=== PATIENT | male | born 1945 | race African-American/Black ===

== ENCOUNTER → 2016-03-27 | Outpatient (CLI) | payer MEDICARE, BC | END | disposition home or self-care (01) | LOC: LABWHC1 08:15 | PROVIDERS: ATTEND Urology | DX: R97.20 Elevated prostate specific antigen [PSA] (principal) | CPT/HCPCS: 36415; 84153 ==

== ENCOUNTER → 2016-08-18 | Outpatient (CLI) | payer MEDICARE, BC ==
[2016-08-18 09:23] LABS: Basophils # (A) 0.1 k/uL (0-0.2); Basophils % (A) 1 %; CH 26.3; Eosinophils # (A) 0.3 k/uL (0-0.7); Eosinophils % (A) 4 %; HCT 41.4 % (39.0-53.0); HDW 2.63; HGB 13.6 gm/dL (13.0-17.5); Luc # (Auto) 0.24; Luc % (Auto) 3; Lymphocytes # (A) 1.5 k/uL (1.0-4.8); Lymphocytes % (A) 20 %; MCH 26.4 pg (25.0-35.0); MCHC 32.8 g/dL (31.0-37.0); MCV 80.4 fL (80.0-100.0); Mean Platelet Volume 6.8; Monocytes # (A) 0.4 k/uL (0-1.0); Monocytes % (A) 5 %; Neutrophils # (A) 5.1 k/uL (1.3-7.7); Neutrophils % (A) 67 %; RBC 5.15 m/uL (4.30-5.90); RDW 14.1 % (11.5-15.5); WBC 7.6 k/uL (3.8-10.6)
[2016-08-18 10:39] LABS: Erythrocyte Sedimentation Rate 8 mm/hr (0-15)
[2016-08-18 12:16] LABS: ALT 42 U/L (21-72); AST 26 U/L (17-59); Alkaline Phosphatase 92 U/L (38-126); Anion Gap 9 mmol/L; Blood Urea Nitrogen 17 mg/dL (9-20); C Reactive Protein <5.0 mg/L (<10.0); Calcium 9.5 mg/dL (8.4-10.2); Carbon Dioxide 27 mmol/L (22-30); Chloride 108 mmol/L (98-107); Cholesterol 195 mg/dL (<200); Creatine Kinase 173 U/L (55-170); Glucose 99 mg/dL (74-99); HDL Cholesterol 39 mg/dL (40-60); Iron 70 ug/dL (49-181); Non-African American GFR(MDRD) 55 (>60 ml/min/1.73 sqM); Potassium 4.3 mmol/L (3.5-5.1); Sodium 144 mmol/L (137-145); Total Bilirubin 0.5 mg/dL (0.2-1.3); Total Protein 7.5 g/dL (6.3-8.2); Triglycerides 105 mg/dL (<150)
[2016-08-18 12:30] LABS: % Iron Saturation 23.2 % (20-50); Total Iron Binding Capacity 302 ug/dL (261-462)
== END | disposition home or self-care (01) ==
LOC: LABWHC1 08:23
PROVIDERS: ATTEND Internal Medicine
DX: Z00.00 Encounter for general adult medical examination without abnormal findings (principal); L03.90 Cellulitis, unspecified; D64.9 Anemia, unspecified; N40.0 Benign prostatic hyperplasia without lower urinary tract symptoms; E78.5 Hyperlipidemia, unspecified; M81.0 Age-related osteoporosis without current pathological fracture; E55.9 Vitamin D deficiency, unspecified
CPT/HCPCS: 36415; 80053; 80061; 82306; 82550; 82728; 83540; 83550; 85025; 85652; 86140

== ENCOUNTER → 2017-06-02 | Outpatient (CLI) | payer MEDICARE ==
[2017-06-02 11:46] LABS: Basophils # (A) 0.1 k/uL (0-0.2); Basophils % (A) 1 %; Eosinophils # (A) 0.2 k/uL (0-0.7); Eosinophils % (A) 3 %; HCT 40.9 % (39.0-53.0); HGB 13.3 gm/dL (13.0-17.5); Lymphocytes # (A) 1.8 k/uL (1.0-4.8); Lymphocytes % (A) 21 %; MCH 26.3 pg (25.0-35.0); MCHC 32.5 g/dL (31.0-37.0); Mean Platelet Volume 7.2; Monocytes # (A) 0.5 k/uL (0-1.0); Monocytes % (A) 6 %; Neutrophils # (A) 5.8 k/uL (1.3-7.7); Neutrophils % (A) 68 %; Platelet Count 180 k/uL (150-450); RBC 5.05 m/uL (4.30-5.90); RDW 14.2 % (11.5-15.5); WBC 8.5 k/uL (3.8-10.6)
--- NOTE | 2017-06-02 16:34 | XR ---
Sinus HISTORY: Acute sinusitis 4 views of the sinuses Correlation to prior exam 05/02/2011 Frontal view appears rotated. No evident lytic or blastic lesion. No air-fluid level to suggest acute sinusitis is evident. Orbits are intact. Bone mineralization is maintained. Degenerative disc change s noted incidentally in the cervical spine. Mastoid air cells appear well aerated. IMPRESSION: Correlate for point tenderness to assess for sinusitis, sinus CT may be of benefit.
== END | disposition home or self-care (01) ==
LOC: LABWHC1 10:45
PROVIDERS: ATTEND Internal Medicine
DX: J01.90 Acute sinusitis, unspecified (principal)
CPT/HCPCS: 36415; 70220; 85025

== ENCOUNTER → 2017-09-30 | Outpatient (CLI) | payer MEDICARE ==
[2017-09-30 08:51] LABS: Basophils # (A) 0.1 k/uL (0-0.2); Basophils % (A) 1 %; Eosinophils # (A) 0.4 k/uL (0-0.7); Eosinophils % (A) 4 %; HCT 41.6 % (39.0-53.0); HGB 13.7 gm/dL (13.0-17.5); Lymphocytes # (A) 1.6 k/uL (1.0-4.8); Lymphocytes % (A) 17 %; MCH 27.1 pg (25.0-35.0); MCV 82.1 fL (80.0-100.0); Mean Platelet Volume 6.8; Monocytes # (A) 0.6 k/uL (0-1.0); Monocytes % (A) 6 %; Neutrophils # (A) 6.6 k/uL (1.3-7.7); Neutrophils % (A) 71 %; Platelet Count 202 k/uL (150-450); RBC 5.07 m/uL (4.30-5.90); RDW 15.1 % (11.5-15.5); WBC 9.4 k/uL (3.8-10.6)
[2017-09-30 10:04] LABS: Erythrocyte Sedimentation Rate 8 mm/hr (0-15)
[2017-09-30 10:05] LABS: ALT 38 U/L (21-72); AST 28 U/L (17-59); Alkaline Phosphatase 67 U/L (38-126); Anion Gap 8 mmol/L; Blood Urea Nitrogen 15 mg/dL (9-20); C Reactive Protein <5.0 mg/L (<10.0); Calcium 9.4 mg/dL (8.4-10.2); Carbon Dioxide 26 mmol/L (22-30); Chloride 108 mmol/L (98-107); Cholesterol 201 mg/dL (<200); Creatine Kinase 125 U/L (55-170); Glucose 95 mg/dL (74-99); HDL Cholesterol 45 mg/dL (40-60); LDL Cholesterol,Calculated 136 mg/dL (0-99); Potassium 4.4 mmol/L (3.5-5.1); Sodium 142 mmol/L (137-145); Total Bilirubin 0.7 mg/dL (0.2-1.3); Total Protein 6.8 g/dL (6.3-8.2); Triglycerides 101 mg/dL (<150)
== END | disposition home or self-care (01) ==
LOC: LABWHC1 07:46
PROVIDERS: ATTEND Internal Medicine
DX: D64.9 Anemia, unspecified (principal); N40.0 Benign prostatic hyperplasia without lower urinary tract symptoms; E87.8 Other disorders of electrolyte and fluid balance, not elsewhere classified; E78.5 Hyperlipidemia, unspecified; M81.0 Age-related osteoporosis without current pathological fracture; E55.9 Vitamin D deficiency, unspecified; K51.90 Ulcerative colitis, unspecified, without complications
CPT/HCPCS: 36415; 80053; 80061; 82306; 82550; 84153; 84443; 85025; 85652; 86140

== ENCOUNTER → 2018-02-05 | Outpatient (CLI) | payer MEDICARE ==
[2018-02-05 15:31] LABS: LDL Cholesterol,Calculated 139.6 mg/dL (0.0-131.0); VLDL Calculation 21.4 mg/dL (5.00-40.00)
== END ==
LOC: LABWHC1 07:56
PROVIDERS: ATTEND Internal Medicine
DX: E78.5 Hyperlipidemia, unspecified (principal)
CPT/HCPCS: 36415; 80061; 82550

== ENCOUNTER → 2018-05-12 | Outpatient (CLI) | payer MEDICARE ==
[2018-05-12 16:39] LABS: ALT 31 U/L (10-49); AST 23 U/L (14-35); Albumin/Globulin Ratio 1.91 (1.60-3.17); Alkaline Phosphatase 89 U/L (41-126); C Reactive Protein <0.4 mg/dL (0.0-0.8); Cholesterol 144 mg/dL (0-200); Creatine Kinase 145 U/L (35-257); Globulin 2.3 g/dL (1.6-3.3); LDL Cholesterol,Calculated 77.6 mg/dL (0.0-131.0); Total Bilirubin 0.6 mg/dL (0.3-1.2); Total Protein 6.7 g/dL (6.2-8.2)
== END | disposition home or self-care (01) ==
LOC: LABWHC1 08:35
PROVIDERS: ATTEND Internal Medicine
DX: E78.5 Hyperlipidemia, unspecified (principal); K52.9 Noninfective gastroenteritis and colitis, unspecified
CPT/HCPCS: 36415; 80061; 80076; 82550; 85652; 86140

== ENCOUNTER → 2018-10-06 | Outpatient (CLI) | payer MEDICARE ==
[2018-10-06 07:49] LABS: Basophils # (A) 0.1 k/uL (0-0.2); Basophils % (A) 1 %; Eosinophils # (A) 0.4 k/uL (0-0.7); Eosinophils % (A) 4 %; HCT 42.1 % (39.0-53.0); HGB 13.4 gm/dL (13.0-17.5); Lymphocytes # (A) 1.7 k/uL (1.0-4.8); Lymphocytes % (A) 19 %; MCH 25.8 pg (25.0-35.0); MCHC 31.8 g/dL (31.0-37.0); MCV 81.3 fL (80.0-100.0); Mean Platelet Volume 7.5; Monocytes # (A) 0.5 k/uL (0-1.0); Monocytes % (A) 6 %; Neutrophils # (A) 6.1 k/uL (1.3-7.7); Neutrophils % (A) 68 %; Platelet Count 193 k/uL (150-450); RBC 5.18 m/uL (4.30-5.90); RDW 14.4 % (11.5-15.5)
[2018-10-06 10:01] LABS: Erythrocyte Sedimentation Rate 4 mm/hr (0-15)
[2018-10-06 12:16] LABS: ALT 37 U/L (10-49); AST 27 U/L (14-35); African American GFR (CKD) 58.6 (60.0-200.0); Albumin/Globulin Ratio 2.15 (1.60-3.17); Alkaline Phosphatase 90 U/L (41-126); BUN/Creat Ratio 12.14 Ratio (12.00-20.00); C Reactive Protein <0.4 mg/dL (0.0-0.8); Calcium 9.3 mg/dL (8.7-10.3); Carbon Dioxide 23.7 mmol/L (21.6-31.8); Chloride 109 mmol/L (96-109); Cholesterol 151 mg/dL (0-200); Creatine Kinase 245 U/L (35-257); Glucose 113 mg/dL (70-110); Potassium 3.7 mmol/L (3.5-5.5); Sodium 143 mmol/L (135-145); Total Bilirubin 0.9 mg/dL (0.3-1.2); Total Protein 6.3 g/dL (6.2-8.2)
== END | disposition home or self-care (01) ==
LOC: LABWHC1 07:17
PROVIDERS: ATTEND Internal Medicine
DX: E78.5 Hyperlipidemia, unspecified (principal); I10 Essential (primary) hypertension; E03.9 Hypothyroidism, unspecified; N40.0 Benign prostatic hyperplasia without lower urinary tract symptoms; E55.9 Vitamin D deficiency, unspecified; K51.90 Ulcerative colitis, unspecified, without complications
CPT/HCPCS: 36415; 80053; 80061; 82306; 82550; 84153; 85025; 85652; 86140

== ENCOUNTER → 2019-05-17 | Outpatient (CLI) | payer MEDICARE ==
--- NOTE | 2019-05-17 11:02 | XR ---
EXAMINATION TYPE: XR chest 2V DATE OF EXAM: 05/17/2019 COMPARISON: NONE TECHNIQUE: PA and lateral views submitted. HISTORY: Cough FINDINGS: The lungs are clear and there is no pneumothorax, pleural effusion, or focal pneumonia. Arthropathy of the shoulders. Biapical pleural thickening. No overt failure. IMPRESSION: 1. No acute process.
[2019-05-17 11:06] LABS: Basophils # (A) 0.1 k/uL (0-0.2); Basophils % (A) 1 %; Eosinophils % (A) 0 %; HCT 40.1 % (39.0-53.0); HGB 12.6 gm/dL (13.0-17.5); Lymphocytes # (A) 1.3 k/uL (1.0-4.8); Lymphocytes % (A) 11 %; MCH 26.5 pg (25.0-35.0); MCHC 31.3 g/dL (31.0-37.0); MCV 84.5 fL (80.0-100.0); Mean Platelet Volume 8.3; Monocytes # (A) 0.5 k/uL (0-1.0); Monocytes % (A) 4 %; Neutrophils # (A) 9.5 k/uL (1.3-7.7); Neutrophils % (A) 82 %; Platelet Count 257 k/uL (150-450); RBC 4.74 m/uL (4.30-5.90); RDW 13.9 % (11.5-15.5); WBC 11.5 k/uL (3.8-10.6)
== END | disposition home or self-care (01) ==
LOC: PROCWHC3 10:25
PROVIDERS: ATTEND Internal Medicine
DX: J06.9 Acute upper respiratory infection, unspecified (principal); J40 Bronchitis, not specified as acute or chronic; J12.9 Viral pneumonia, unspecified
CPT/HCPCS: 71046; 85025; 87502

== ENCOUNTER → 2019-05-31 | Outpatient (CLI) | payer MEDICARE ==
[2019-05-31 09:05] LABS: Appearance,Urine Clear (Clear); Bacteria,Urine Rare /hpf; Bilirubin,Urine Negative (Negative); Blood,Urine Small (Negative); Color,Urine Yellow; Glucose,Urine (UA) Negative (Negative); Ketones,Urine Negative (Negative); Leukocyte Esterase,Urine Trace (Negative); Mucus,Urine Rare /hpf; Nitrite,Urine Negative (Negative); Protein,Urine Negative (Negative); RBC,Urine 49 /hpf (0-5); Specific Gravity,Urine 1.014 (1.001-1.035); Squamous Epithelial Cell,Urine <1 /hpf (0-4); Urobilinogen,Urine <2.0 mg/dL (<2.0); WBC,Urine 5 /hpf (0-5)
== END | disposition home or self-care (01) ==
LOC: LABWHC1 08:23
PROVIDERS: ATTEND Internal Medicine
DX: R31.9 Hematuria, unspecified (principal)
CPT/HCPCS: 36415; 81001; 84550; 87086; 88108

== ENCOUNTER → 2019-07-20 | Outpatient (CLI) | payer MEDICARE ==
--- NOTE | 2019-07-20 10:40 | US ---
EXAMINATION TYPE: US kidneys/renal and bladder DATE OF EXAM: 07/20/2019 COMPARISON: NONE CLINICAL HISTORY: R31.1 Benign essential microscopic hematuria. EXAM MEASUREMENTS: Right Kidney: 11.7 x 6.0 x 6.3 cm Left Kidney: 10.8 x 4.6 x 5.2 cm Right Kidney: No hydronephrosis. Two cystic areas visualized, largest measuring 4.9 x 4.7 x 3.8 cm Left Kidney: No hydronephrosis or masses seen Bladder: Mobile, Shadowing, echogenic foci visualized measuring 2.0 x 2.6 x 1.7 cm Bilateral Jets seen: No There is no evidence for hydronephrosis at this point in time. No nephrolithiasis is seen. 2 simple appearing thin-walled cysts throughout right kidney identified up to 4.9 cm long axis. IMPRESSION: Shadowing irregular Intraluminal bladder calculi up to 2.6 cm in size.
== END | disposition home or self-care (01) ==
LOC: RADUSWWP 09:32
PROVIDERS: ATTEND Urology
DX: N21.0 Calculus in bladder (principal)
CPT/HCPCS: 76770

== ENCOUNTER → 2019-08-18 | Outpatient (CLI) | payer MEDICARE ==
[2019-08-18 11:31] LABS: Basophils # (A) 0.1 k/uL (0-0.2); Basophils % (A) 1 %; Eosinophils # (A) 0.1 k/uL (0-0.7); Eosinophils % (A) 1 %; HCT 43.3 % (39.0-53.0); HGB 13.4 gm/dL (13.0-17.5); Hypochromasia Slight; Lymphocytes % (A) 12 %; MCH 26.9 pg (25.0-35.0); MCHC 30.8 g/dL (31.0-37.0); MCV 87.3 fL (80.0-100.0); Mean Platelet Volume 7.7; Monocytes # (A) 0.2 k/uL (0-1.0); Monocytes % (A) 3 %; Neutrophils # (A) 6.8 k/uL (1.3-7.7); Neutrophils % (A) 83 %; Platelet Count 186 k/uL (150-450); RBC 4.96 m/uL (4.30-5.90); RDW 14.1 % (11.5-15.5); WBC 8.3 k/uL (3.8-10.6)
[2019-08-18 18:10] LABS: African American GFR (CKD) 63.6 (60.0-200.0); Anion Gap 8.2 mmol/L (4.00-12.00); BUN/Creat Ratio 15.38 Ratio (12.00-20.00); Calcium 9.5 mg/dL (8.7-10.3); Carbon Dioxide 24.8 mmol/L (21.6-31.8); Non-African American GFR(CKD) 54.9 (60.0-200.0); Potassium 4.4 mmol/L (3.5-5.5)
== END | disposition home or self-care (01) ==
LOC: LABWHC1 09:15
PROVIDERS: ATTEND Urology
DX: N21.0 Calculus in bladder (principal)
CPT/HCPCS: 36415; 80048; 85025

== ENCOUNTER → 2019-09-28 | Outpatient (CLI) | payer MEDICARE ==
--- NOTE | 2019-09-28 12:45 | XR ---
EXAMINATION TYPE: XR wrist complete LT DATE OF EXAM: 09/28/2019 CLINICAL HISTORY: Left wrist edema and anterior and medial pain. No known injury. TECHNIQUE: Frontal, lateral and oblique images of the left wrist are obtained. COMPARISON: None FINDINGS: There is no acute fracture/dislocation evident in the left wrist. There is narrowing and degenerative change of the distal radial ulnar joint. Minimal narrowing of the radiocarpal joint. The re are diffuse subchondral cystic changes of the intercarpal and the first metacarpal phalangeal join t. There is widening of the scapholunate interval up to 3.3 mm consistent with SLAC wrist. There is s oft tissue swelling about the wrist, most notably on the palmar side. IMPRESSION: 1. No acute fracture or dislocation. 2. Scapholunate advanced collapse (SLAC) wrist, wrist soft tissue swelling, and degenerative changes in distribution as above. 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
[2019-09-28 13:38] LABS: Basophils # (A) 0.1 k/uL (0-0.2); Basophils % (A) 0 %; Eosinophils # (A) 0.1 k/uL (0-0.7); Eosinophils % (A) 1 %; HCT 42.1 % (39.0-53.0); HGB 13.2 gm/dL (13.0-17.5); Lymphocytes # (A) 1.3 k/uL (1.0-4.8); Lymphocytes % (A) 12 %; MCH 26.3 pg (25.0-35.0); MCHC 31.3 g/dL (31.0-37.0); MCV 84.1 fL (80.0-100.0); Mean Platelet Volume 8.4; Monocytes # (A) 0.9 k/uL (0-1.0); Monocytes % (A) 8 %; Neutrophils # (A) 8.8 k/uL (1.3-7.7); Neutrophils % (A) 77 %; Platelet Count 154 k/uL (150-450); RBC 5.01 m/uL (4.30-5.90); RDW 13.1 % (11.5-15.5); WBC 11.4 k/uL (3.8-10.6)
[2019-09-28 19:56] LABS: African American GFR (CKD) 63.6 (60.0-200.0); Anion Gap 7.5 mmol/L (4.00-12.00); BUN/Creat Ratio 13.85 Ratio (12.00-20.00); Calcium 9.4 mg/dL (8.7-10.3); Carbon Dioxide 28.5 mmol/L (21.6-31.8); Non-African American GFR(CKD) 54.9 (60.0-200.0); Potassium 4.5 mmol/L (3.5-5.5)
[2019-09-28 19:57] LABS: C Reactive Protein 4.4 mg/dL (0.0-0.8); Uric Acid 6.7 mg/dL (3.7-8.7)
[2019-09-28 22:11] LABS: Anti-DNA, DS unit <1.0 IU/mL; DNA Double-Stranded NEGATIVE (NEGATIVE)
[2019-09-28 22:17] LABS: Cyclic Citrull Pep IgG Unit <0.5 U/mL; Cyclic Citrullinated Pep IgG NEGATIVE (NEGATIVE)
[2019-09-29 00:02] LABS: Erythrocyte Sedimentation Rate 12 mm/Hr (0-20)
== END | disposition home or self-care (01) ==
LOC: LABWHC1 11:41
PROVIDERS: ATTEND Internal Medicine
DX: D64.9 Anemia, unspecified (principal); M10.9 Gout, unspecified; M06.9 Rheumatoid arthritis, unspecified; K57.90 Diverticulosis of intestine, part unspecified, without perforation or abscess without bleeding; Z87.39 Personal history of other diseases of the musculoskeletal system and connective tissue; M25.632 Stiffness of left wrist, not elsewhere classified; M79.89 Other specified soft tissue disorders; M12.9 Arthropathy, unspecified
CPT/HCPCS: 36415; 80048; 84550; 85025; 85652; 86038; 86140; 86200; 86225; 86431

== ENCOUNTER → 2019-10-19 | Outpatient (CLI) | payer MEDICARE ==
[2019-10-19 07:42] LABS: Basophils # (A) 0.1 k/uL (0-0.2); Basophils % (A) 1 %; Eosinophils # (A) 0.3 k/uL (0-0.7); Eosinophils % (A) 3 %; HCT 41.6 % (39.0-53.0); HGB 12.8 gm/dL (13.0-17.5); Lymphocytes # (A) 2.2 k/uL (1.0-4.8); Lymphocytes % (A) 22 %; MCH 25.9 pg (25.0-35.0); MCHC 30.8 g/dL (31.0-37.0); Mean Platelet Volume 8.2; Monocytes # (A) 0.5 k/uL (0-1.0); Monocytes % (A) 5 %; Neutrophils # (A) 6.4 k/uL (1.3-7.7); Neutrophils % (A) 66 %; Platelet Count 167 k/uL (150-450); RBC 4.95 m/uL (4.30-5.90); RDW 13.2 % (11.5-15.5); WBC 9.7 k/uL (3.8-10.6)
[2019-10-19 07:46] LABS: Appearance,Urine Clear (Clear); Bilirubin,Urine Negative (Negative); Blood,Urine Negative (Negative); Color,Urine Yellow; Glucose,Urine (UA) Negative (Negative); Ketones,Urine Negative (Negative); Leukocyte Esterase,Urine Negative (Negative); Nitrite,Urine Negative (Negative); PH, Urine 5.5 (5.0-8.0); Protein,Urine Negative (Negative); Urobilinogen,Urine <2.0 mg/dL (<2.0)
[2019-10-19 12:33] LABS: African American GFR (CKD) 58.2 (60.0-200.0); Albumin 4.2 g/dL (3.80-4.90); Anion Gap 6.8 mmol/L (4.00-12.00); BUN/Creat Ratio 11.43 Ratio (12.00-20.00); Calcium 9.3 mg/dL (8.7-10.3); Carbon Dioxide 28.2 mmol/L (21.6-31.8); Chol/HDL Ratio 2.84; Globulin 2.1 g/dL (1.6-3.3); Magnesium 1.7 mg/dL (1.5-2.4); Non-African American GFR(CKD) 50.2 (60.0-200.0); Phosphorus 3.5 mg/dL (2.4-5.1); Potassium 3.6 mmol/L (3.5-5.5); Total Bilirubin 0.6 mg/dL (0.3-1.2); Total Protein 6.3 g/dL (6.2-8.2); Uric Acid 7.7 mg/dL (3.7-8.7)
[2019-10-19 12:42] LABS: Prostate Specific Antigen 4.4 ng/mL (0.0-6.5)
[2019-10-19 19:02] LABS: Erythrocyte Sedimentation Rate 7 mm/Hr (0-20)
== END | disposition home or self-care (01) ==
LOC: LABWHC1 07:06
PROVIDERS: ATTEND Internal Medicine
DX: M10.9 Gout, unspecified (principal); R31.9 Hematuria, unspecified; D63.1 Anemia in chronic kidney disease; N18.3 Chronic kidney disease, stage 3 (moderate); E78.5 Hyperlipidemia, unspecified; K52.9 Noninfective gastroenteritis and colitis, unspecified; N40.0 Benign prostatic hyperplasia without lower urinary tract symptoms
CPT/HCPCS: 36415; 80053; 80061; 81003; 82306; 83735; 83970; 84100; 84153; 84550; 85025; 85652

== ENCOUNTER → 2019-11-02 | Outpatient (CLI) | payer MEDICARE, OTHER ==
--- NOTE | 2019-11-02 14:00 | ECHOF ---
Referral Reason:I95.9 Hypotension MEASUREMENTS -------- HEIGHT: 182.9 cm WEIGHT: 96.2 kg BP: RVIDd: 3.0 cm (< 3.3) IVSd: 1.2 cm (0.6 - 1.1) LVIDd: 4.6 cm (3.9 - 5.3) LVPWd: 0.9 cm (0.6 - 1.1) IVSs: 1.5 cm LVIDs: 3.3 cm LVPWs: 1.3 cm LA Diam: 4.0 cm (2.7 - 3.8) LAESV Index (A-L): 27.60 ml/m Ao Diam: 4.3 cm (2.0 - 3.7) AV Cusp: 2.0 cm (1.5 - 2.6) MV EXCURSION: 22.560 mm (> 18.000) MV EF SLOPE: 74 mm/s (70 - 150) EPSS: 0.5 cm MV E Gianfranco: 0.33 m/s MV DecT: 287 ms MV A Gianfranco: 0.70 m/s MV E/A Ratio: 0.47 RAP: 5.00 mmHg RVSP: 12.83 mmHg FINDINGS -------- Sinus rhythm. This was a technically good study. The left ventricular size is normal. Overall left ventricular systolic function is mildly impaired with, an EF between 45 - 50 %. The right ventricle is normal in size. The left atrial size is normal. Normal LA size by volume 22+/-6 ml/m2. The right atrial size is normal. There is mild aortic regurgitation. Mild mitral regurgitation is present. Mild tricuspid regurgitation present. Right ventricular systolic pressure is normal at < 35 mmHg. There is no pulmonic regurgitation present. The aortic root size is normal. There is no pericardial effusion. CONCLUSIONS -------- 1. The left ventricular size is normal. 2. Overall left ventricular systolic function is mildly impaired with, an EF between 45 - 50 %. 3. The right ventricle is normal in size. 4. The right atrial size is normal. 5. There is mild aortic regurgitation. 6. Mild mitral regurgitation is present. 7. Mild tricuspid regurgitation present. SOCK LINING STITCHER: Elena Tinajero RDCS
== END | disposition home or self-care (01) ==
LOC: RADECHMAIN 11:12
PROVIDERS: ATTEND Internal Medicine
DX: I08.3 Combined rheumatic disorders of mitral, aortic and tricuspid valves (principal); I25.10 Atherosclerotic heart disease of native coronary artery without angina pectoris
CPT/HCPCS: 93306

== ENCOUNTER → 2020-02-01 | Outpatient (CLI) | payer MEDICARE ==
[2020-02-01 19:43] LABS: T4, Free (Free Thyroxine) 0.8 ng/dL (0.80-1.80)
== END | disposition home or self-care (01) ==
LOC: LABWHC1 14:12
PROVIDERS: ATTEND Nurse Practitioner Adult Health
DX: E03.9 Hypothyroidism, unspecified (principal)
CPT/HCPCS: 36415; 84439; 84443; 84481

== ENCOUNTER → 2020-10-30 | Outpatient (CLI) | payer MEDICARE, OTHER ==
[2020-10-30 08:10] LABS: Creatinine,Urine Random 112.9 mg/dL; Protein/Creatinine Ratio,Urine 0.071
[2020-10-30 11:31] LABS: Basophils # (A) 0.07 X 10*3/uL (0.00-0.10); Basophils % (A) 0.7 %; Eosinophils # (A) 0.44 X 10*3/uL (0.04-0.35); Eosinophils % (A) 4.1 %; HCT 43.1 % (39.6-50.0); HGB 13.9 g/dL (13.0-17.0); Lymphocytes # (A) 2.75 X 10*3/uL (0.90-5.00); Lymphocytes % (A) 25.6 %; MCH 26.8 pg (27.0-32.0); MCHC 32.3 g/dL (32.0-37.0); Mean Platelet Volume 11.7 fL (9.5-12.2); Monocytes # (A) 0.95 X 10*3/uL (0.20-1.00); Monocytes % (A) 8.8 %; Neutrophils # (A) 6.47 X 10*3/uL (1.80-7.70); Neutrophils % (A) 60.2 %; Platelet Count 195 X 10*3/uL (140-440); RBC 5.19 X 10*6/uL (4.40-5.60); RDW 14.6 % (11.5-14.5); WBC 10.74 X 10*3/uL (4.50-10.00)
[2020-10-30 15:15] LABS: African American GFR (CKD) 69.6 (60.0-200.0); Albumin 4.4 g/dL (3.80-4.90); Albumin/Globulin Ratio 1.76 (1.60-3.17); Anion Gap 6.6 mmol/L (4.00-12.00); BUN/Creat Ratio 16.67 Ratio (12.00-20.00); Calcium 9.2 mg/dL (8.7-10.3); Carbon Dioxide 27.4 mmol/L (21.6-31.8); Chol/HDL Ratio 2.96; Globulin 2.5 g/dL (1.6-3.3); LDL Cholesterol,Calculated 83.8 mg/dL (0.0-131.0); Non-African American GFR(CKD) 60.1 (60.0-200.0); Potassium 4.2 mmol/L (3.5-5.5); Total Bilirubin 0.7 mg/dL (0.2-1.2); Total Protein 6.9 g/dL (6.2-8.2); Uric Acid 7.2 mg/dL (3.7-8.7); VLDL Calculation 18.2 mg/dL (5.00-40.00)
[2020-10-30 15:24] LABS: Prostate Specific Antigen 4.9 ng/mL (0.0-6.5)
[2020-10-30 20:28] LABS: Erythrocyte Sedimentation Rate 5 mm/Hr (0-20)
== END | disposition home or self-care (01) ==
LOC: LABWHC1 07:00
PROVIDERS: ATTEND Internal Medicine
DX: D64.9 Anemia, unspecified (principal); N40.0 Benign prostatic hyperplasia without lower urinary tract symptoms; E78.5 Hyperlipidemia, unspecified; N20.0 Calculus of kidney; R80.9 Proteinuria, unspecified; E55.9 Vitamin D deficiency, unspecified; I12.9 Hypertensive chronic kidney disease with stage 1 through stage 4 chronic kidney disease, or unspecified chronic kidney disease; N18.30 Chronic kidney disease, stage 3 unspecified
CPT/HCPCS: 36415; 80053; 80061; 82306; 82570; 84153; 84156; 84550; 85025; 85652

== ENCOUNTER → 2021-10-25 | Outpatient (CLI) | payer MEDICARE, OTHER ==
[2021-10-25 11:26] LABS: % Iron Saturation 16.53 (15.00-50.00); ALT 32 U/L (10-49); AST 26 U/L (14-35); African American GFR (CKD) 69.1 (60.0-200.0); Albumin 4.3 g/dL (3.8-4.9); Albumin/Globulin Ratio 1.95 (1.60-3.17); Alkaline Phosphatase 86 U/L (41-126); BUN/Creat Ratio 10.92 Ratio (12.00-20.00); Blood Urea Nitrogen 13.1 mg/dL (9.0-27.0); Carbon Dioxide 26.8 mmol/L (20.0-27.5); Chloride 107 mmol/L (96-109); Globulin 2.2 g/dL (1.6-3.3); Glucose 96 mg/dL (70-110); Iron 48 ug/dL (65-175); Magnesium 1.9 mg/dL (1.5-2.4); Non-African American GFR(CKD) 59.6 (60.0-200.0); Phosphorus 3.4 mg/dL (2.4-5.1); Potassium 3.8 mmol/L (3.5-5.5); Sodium 144 mmol/L (135-145); Total Iron Binding Capacity 290 ug/dL (228-460); Total Protein 6.5 g/dL (6.2-8.2); Uric Acid 6.1 mg/dL (3.7-8.7)
[2021-10-25 11:55] LABS: Basophils # (A) 0.06 X 10*3/uL (0.00-0.10); Basophils % (A) 0.7 %; Eosinophils # (A) 0.43 X 10*3/uL (0.04-0.35); Eosinophils % (A) 4.8 %; HCT 40.5 % (39.6-50.0); Immature Grans, Automated 0.8 %; Lymphocytes # (A) 2.19 X 10*3/uL (0.90-5.00); Lymphocytes % (A) 24.2 %; MCH 26.2 pg (27.0-32.0); MCHC 32.1 g/dL (32.0-37.0); MCV 81.7 fL (80.0-97.0); Monocytes # (A) 0.86 X 10*3/uL (0.20-1.00); Monocytes % (A) 9.5 %; NRBC Per 100 WBC 0 /100 WBCS (0.0-0.0); Neutrophils # (A) 5.44 X 10*3/uL (1.80-7.70); Platelet Count 171 X 10*3/uL (140-440); RBC 4.96 X 10*6/uL (4.40-5.60); RDW 14.7 % (11.5-14.5); WBC 9.05 X 10*3/uL (4.50-10.00)
[2021-10-25 12:31] LABS: C Reactive Protein <0.30 mg/dL (0.00-0.80); Chol/HDL Ratio 2.41 Ratio; Creatine Kinase 179 U/L (35-257); LDL Cholesterol,Calculated 68.5 mg/dL (0.0-131.0); VLDL Calculation 11.56 mg/dL (5.00-40.00)
[2021-10-25 13:37] LABS: Erythrocyte Sedimentation Rate 7 mm/Hr (0-20)
== END | disposition home or self-care (01) ==
LOC: LABWHC1 06:57
PROVIDERS: ATTEND Internal Medicine
DX: Z00.00 Encounter for general adult medical examination without abnormal findings (principal); D64.9 Anemia, unspecified; N40.0 Benign prostatic hyperplasia without lower urinary tract symptoms; E87.8 Other disorders of electrolyte and fluid balance, not elsewhere classified; E78.5 Hyperlipidemia, unspecified; E03.9 Hypothyroidism, unspecified; M81.0 Age-related osteoporosis without current pathological fracture; E55.9 Vitamin D deficiency, unspecified; K51.90 Ulcerative colitis, unspecified, without complications
CPT/HCPCS: 36415; 80053; 80061; 82306; 82550; 82728; 83540; 83550; 83735; 84100; 84153; 84443; 84550; 85025; 85652; 86140

== ENCOUNTER → 2022-10-28 | Outpatient (CLI) | payer MEDICARE, OTHER ==
[2022-10-28 12:03] LABS: Basophils # (A) 0.08 X 10*3/uL (0.00-0.10); Basophils % (A) 0.8 %; Eosinophils # (A) 0.57 X 10*3/uL (0.04-0.35); Eosinophils % (A) 5.4 %; HCT 41.9 % (39.6-50.0); HGB 13.7 d/dL (13.0-17.0); Lymphocytes # (A) 2.51 X 10*3/uL (0.90-5.00); Lymphocytes % (A) 23.7 %; MCH 27.1 pg (27.0-32.0); MCHC 32.7 d/dL (32.0-37.0); MCV 82.8 FL (80.0-97.0); Mean Platelet Volume 11.7 FL (9.5-12.2); Monocytes # (A) 0.82 X 10*3/uL (0.20-1.00); Monocytes % (A) 7.7 %; NRBC Per 100 WBC 0 X 10*3/uL (0.00-0.01); Neutrophils # (A) 6.51 X 10*3/uL (1.80-7.70); Neutrophils % (A) 61.5 %; Platelet Count 190 X 10*3/uL (140-440); RBC 5.06 X 10*6/uL (4.40-5.60); RDW 14.7 % (11.5-14.5); WBC 10.59 X 10*3/uL (4.50-10.00)
[2022-10-28 12:26] LABS: ALT 24 U/L (10-49); AST 20 U/L (14-35); Albumin 4.3 d/dL (3.8-4.9); Albumin/Globulin Ratio 2.05 Ratio (1.60-3.17); Alkaline Phosphatase 98 U/L (41-126); BUN/Creat Ratio 13.33 Ratio (12.00-20.00); Calcium 9.3 mg/dL (8.7-10.3); Chloride 106 mmol/L (96-109); Chol/HDL Ratio 2.82 Ratio; Creatine Kinase 151 U/L (35-257); Globulin 2.1 d/dL (1.6-3.3); Glucose 94 mg/dL (70-110); Iron 60 UG/DL (65-175); LDL Cholesterol,Calculated 72.2 mg/dL (0.0-131.0); Phosphorus 3.5 mg/dL (2.4-5.1); Potassium 4.2 mmol/L (3.5-5.5); Sodium 143 mmol/L (135-145); Total Bilirubin 0.4 mg/dL (0.3-1.2); Total Iron Binding Capacity 274 UG/DL (228-460); Total Protein 6.4 d/dL (6.2-8.2); Uric Acid 7.3 mg/dL (3.7-8.7)
[2022-10-28 12:31] LABS: Erythrocyte Sedimentation Rate 10 mm/Hr (0-20)
[2022-10-28 14:24] LABS: C Reactive Protein <0.30 mg/dL (0.00-0.80)
== END | disposition home or self-care (01) ==
LOC: LABWHC1 06:46
PROVIDERS: ATTEND Internal Medicine
DX: Z00.00 Encounter for general adult medical examination without abnormal findings (principal); D64.9 Anemia, unspecified; N40.0 Benign prostatic hyperplasia without lower urinary tract symptoms; E87.8 Other disorders of electrolyte and fluid balance, not elsewhere classified; M10.9 Gout, unspecified; E78.5 Hyperlipidemia, unspecified; E03.9 Hypothyroidism, unspecified; E55.9 Vitamin D deficiency, unspecified
CPT/HCPCS: 36415; 80053; 80061; 82306; 82550; 82728; 83540; 83550; 83735; 84100; 84153; 84443; 84550; 85025; 85652; 86140

== ENCOUNTER → 2023-02-04 | Outpatient (CLI) | payer MEDICARE, OTHER | END | disposition home or self-care (01) | LOC: LABWHC1 07:05 | PROVIDERS: ATTEND Internal Medicine | DX: N40.0 Benign prostatic hyperplasia without lower urinary tract symptoms (principal); R97.8 Other abnormal tumor markers | CPT/HCPCS: 36415; 84153 ==

== ENCOUNTER → 2023-03-10 | Outpatient (CLI) | payer MEDICARE, OTHER ==
[2023-03-10 13:44] LABS: African American GFR (CKD) 60 (>60 ml/min/1.73 sqM); Blood Urea Nitrogen 15 mg/dL (9-20); Non-African American GFR(CKD) 52 (>60 ml/min/1.73 sqM)
--- NOTE | 2023-03-10 15:40 | CT ---
EXAMINATION TYPE: CT abdomen pelvis wo/w con DATE OF EXAM: 03/10/2023 COMPARISON: None HISTORY: Elevated PSA x [address] DLP: 2872 mGycm Automated exposure control for dose reduction was used. TECHNIQUE: Helical acquisition of images was performed from the lung bases through the pelvis. CONTRAST: Performed with Oral Contrast and without and with IV Contrast, patient injected with 80 cc mL of Isov ue 300. FINDINGS: The visualized lung bases are clear. The gallbladder is normal is no biliary ductal dilatation. There is no focal mass or organomegaly involving the liver, pancreas, spleen or adrenal glands. There is a tiny 2 to 3 mm sebastian-like nonobstructing calcification in the right kidney. There is a 9.6 mm stone in the proximal right ureter. There is no hydronephrosis bilaterally. There is a 5 cm simple cortical cyst of the right kidney. There is no solid renal masses. There are n o filling defects within the visualized portions of the renal collecting systems There is no retroperitoneal adenopathy or hemorrhage in the caliber the abdominal aorta is normal.. The bowel loops are normal in caliber and there is no dilatation or obstruction. No inflammatory adam ges are identified in the bowel wall or mesentery. There is no free intraperitoneal air or fluid. There is moderate prostatic hypertrophy and mild prosthetic calcification. There is no pelvic mass, f ree fluid, abscess or adenopathy. There is mottling of the left iliac wing and the possibility of metastatic disease is not excluded. B one scan might be useful for further evaluation. IMPRESSION: 1. 9.6 mm nonobstructing stone in the proximal right ureter. 2. Moderate prostatic hypertrophy. 3. Mottled density in the left iliac wing and the possibility of metastatic disease is not excluded. Bone scan might be useful for further evaluation.
== END | disposition home or self-care (01) ==
LOC: RADCTMAIN 12:51
PROVIDERS: ATTEND Urology
DX: N40.0 Benign prostatic hyperplasia without lower urinary tract symptoms (principal); R31.0 Gross hematuria; R97.20 Elevated prostate specific antigen [PSA]
CPT/HCPCS: 82565; 84520; 74178; 36415; Q9967

== ENCOUNTER → 2023-03-17 | Outpatient (CLI) | payer MEDICARE, OTHER ==
--- NOTE | 2023-03-17 10:41 | XR ---
EXAMINATION TYPE: XR KUB DATE OF EXAM: 03/17/2023 10:14 AM CLINICAL INDICATION:Male, 77 years old with history of N201; [facility] COMPARISON: 03/10/2023. . TECHNIQUE: One radiographic view of the abdomen was obtained. FINDINGS: The bowel gas pattern is nonspecific without dilated loops of small or large bowel. There i s no evidence for organomegaly or pneumoperitoneum. The osseous structures are intact. Fecal materi al and gas are demonstrated throughout the colon and rectum. Severe degeneration changes throughout t he spine. Right renal pelvis calculus measuring 9 mm is unchanged in position from CT 03/10/2023. No left renal calculi. IMPRESSION: Similar location of the right proximal ureter/ureteropelvic junction calculus.
== END | disposition home or self-care (01) ==
LOC: RADXRMAIN 09:36
PROVIDERS: ATTEND Urology
DX: N20.1 Calculus of ureter (principal)
CPT/HCPCS: 74018

== ENCOUNTER → 2023-03-19 | Outpatient (CLI) | payer MEDICARE, OTHER ==
[2023-03-19 11:35] LABS: BUN/Creat Ratio 9.83 Ratio (12.00-20.00); Blood Urea Nitrogen 11.8 mg/dL (9.0-27.0); Calcium 9.4 mg/dL (8.7-10.3); Carbon Dioxide 26.2 mmol/L (21.6-31.8); Chloride 106 mmol/L (96-109); Glucose 96 mg/dL (70-110); Potassium 4.2 mmol/L (3.5-5.5); Sodium 143 mmol/L (135-145)
[2023-03-19 12:09] LABS: HCT 40.5 % (39.6-50.0); HGB 13.4 g/dL (13.0-17.0); MCH 26.6 pg (27.0-32.0); MCHC 33.1 g/dL (32.0-37.0); MCV 80.4 FL (80.0-97.0); Mean Platelet Volume 11.4 FL (9.5-12.2); NRBC Per 100 WBC 0 X 10*3/uL (0.00-0.01); Platelet Count 188 X 10*3/uL (140-440); RBC 5.04 X 10*6/uL (4.40-5.60); RDW 14.9 % (11.5-14.5)
[2023-03-19 12:14] LABS: Basophils # (M) 0.09 X 10*3/uL (0.00-0.10); Elliptocytes 2+; Eosinophils # (M) 0.28 X 10*3/uL (0.04-0.35); Lymphocytes # (M) 1.58 X 10*3/uL (0.90-5.00); Monocytes # (M) 0.46 X 10*3/uL (0.20-1.00); Neutrophils # (M) 6.88 X 10*3/uL (1.80-7.70); Neutrophils % (M) 74 %
== END | disposition home or self-care (01) ==
LOC: LABPAT 06:52
PROVIDERS: ATTEND Urology
DX: Z01.812 Encounter for preprocedural laboratory examination (principal); N20.1 Calculus of ureter
CPT/HCPCS: 36415; 80048; 85025

== ENCOUNTER → 2023-03-21 | Outpatient (CLI) | payer MEDICARE, OTHER ==
--- NOTE | 2023-03-23 20:02 | MR ---
EXAMINATION TYPE: MR Prostate wo/w con DATE OF EXAM: 03/21/2023 10:24 AM COMPARISON: None. CLINICAL INDICATION:Male, 77 years old with history of R97.20 ELEVATED PROSTATE SPECIFIC ANTIGEN; Leticia vated PSA, TECHNIQUE: Multi-planar, multi-sequence imaging of the pelvis is performed prior to and following the uncomplicated administration of bolus intravenous gadolinium. CONTRAST: 10 Gadavist Interpretive Criteria: PI-RADS v2.1 SERUM PSA: 7.2 on 10/28/2022. 5.0 on 10/25/2021. No data available. on No data available.. No data available. on No data available.. SURGICAL PATHOLOGY: No data available. FINDINGS: Prostatic dimensions: 5.7 x 5.0 x 4.2 cm. Ellipsoid Volume:62.67 (PSA density=0.11 ng/mL/mL) CENTRAL GLAND (Central and Transition Zones/CZ+TZ): Multiple bilateral, heterogenous appearing hypertrophic stromal nodules, without suspicious lesion. M edian lobe hypertrophy with protrusion into the base of the bladder. (PI-RADS 2) PERIPHERAL ZONE (PZ): Bilateral linear, indistinct wedgelike areas of low ADC, and low T2 signal, No evidence of masslike a bnormality, or localized perfusional hypervascularity, to further suggest a focus of clinically signi ficant prostate cancer. (PI-RADS 2) SEMINAL VESICLES (SV): Symmetric and unremarkable. PERIPROSTATIC TISSUES: Unremarkable. LYMPH NODES: No enlarged pelvic lymph node. REMAINING PELVIS: Bladder wall is within normal limits given distention. No abnormal free or organized intrapelvic fluid collection. No pathologic bowel dilation or mural thickening. No hernia visualized Circumferential wall thickening of the rectum with wall thickening up to 6 mm felt to be due to nondi stention. OSSEOUS STRUCTURES: No suspicious osseous abnormality. Insertional high PD signal within the origin of the left hamstring tendons. IMPRESSION: 1. No specific features for high-risk prostate cancer. Maximum PI-RADS score: 2. 2. Moderate BPH, estimated gland volume 62.67 mL., 3. Left semimembranosus increased signal near its origin correlate for partial tear.
== END | disposition home or self-care (01) ==
LOC: RADMRIMAIN 08:56
PROVIDERS: ATTEND Urology
DX: N40.0 Benign prostatic hyperplasia without lower urinary tract symptoms (principal); R97.20 Elevated prostate specific antigen [PSA]
CPT/HCPCS: 72197; A9585

== ENCOUNTER → 2023-03-26 | Day surgery (SDC) | payer MEDICARE, OTHER ==
[2023-03-24 12:15] VITALS: BMI 29.9
--- NOTE | 2023-03-25 09:15 | P.GSHP ---
History of Present Illness H&P Date: 03/25/23 Chief Complaint: Renal colic The patient is a 77-year-old male who underwent cystolithotripsy in 2019. He experienced gross hematuria in August 2022. He reports low back pain. Computed tomography scan has shown a 1 cm right proximal ureteral calculus. He was offered the options of medical expulsion therapy, extracorporal shockwave lithotripsy (ESWL), and ureteroscopy with laser lithotripsy. He has chosen to undergo the latter. - Constitutional Constitutional: Denies chills, Denies fever - Genitourinary (Male) Genitourinary: Reports flank pain, Reports hematuria, Reports kidney stones, De nies dysuria Past Medical History Past Medical History: Hearing Disorder / Deafness, Hyperlipidemia, Prostate Disorder Additional Past Medical History / Comment(s): "heart skips a beat" see's Dr. erickson- does not take medication for this, colitis- recent flare up 03-23-23, wears bi lat hearing aides. enlarged prostate, kidney stones. History of Any Multi-Drug Resistant Organisms: None Reported Past Surgical History: Orthopedic Surgery Additional Past Surgical History / Comment(s): torn meniscus to rt knee- arthroscopy x4 "I had a stone removed from my bladder" Past Anesthesia/Blood Transfusion Reactions: No Reported Reaction Smoking Status: Never smoker - Past Family History Mother Family Medical History: Cancer Additional Family Medical History / Comment(s): mother-skin cancer sister- pancreatic cancer. Medications and Allergies Home Medications Medication Instructions Recorded Confirmed Type Ascorbic Acid [Vitamin C] 1,000 mg PO QAM 03/24/23 03/24/23 History Atorvastatin [Lipitor] 10 mg PO TUFR 03/24/23 03/24/23 History Balsalazide Disodium 2,250 mg PO TID 03/24/23 03/24/23 History Cholecalciferol (Vitamin D3) 50 mcg PO QAM 03/24/23 03/24/23 History [Vitamin D3 (50 Mcg = 2000 Iu) Chew Tab] Cyanocobalamin (Vitamin B-12) 2,500 mcg PO QAM 03/24/23 03/24/23 History [Vitamin B-12] Ferrous Sulfate [Feosol] 325 mg PO BID 03/24/23 03/24/23 History Ketorolac Tromethamine 10 mg PO Q6HR PRN 03/24/23 03/24/23 History Multivitamins, Thera [Multivitamin 1 tab PO QAM 03/24/23 03/24/23 History (formulary)] Pyridoxine HCl (Vitamin B6) 100 mg PO QAM 03/24/23 03/24/23 History [Vitamin B-6] Tamsulosin HCl [Flomax] 0.4 mg PO HS 03/24/23 03/24/23 History Zinc Citrate [Zinc] 15 mg PO QAM 03/24/23 03/24/23 History predniSONE 10 mg PO TID PRN 03/24/23 03/24/23 History Allergies Allergy/AdvReac Type Severity Reaction Status Date / Time No Known Allergies Allergy Verified 03/24/23 11:46 Surgical - Exam - General well developed, well nourished, no distress - Respiratory normal respiratory effort - Abdomen Abdomen: soft, non tender, no guarding, no rigid, no rebound - Genitourinary normal penis with no external lesions, testicles non-tender - Psychiatric oriented to time, oriented to person, oriented to place, speech is normal, memory intact Results - Imaging Abdominal x-ray: report reviewed, image reviewed CT scan - abdomen: report reviewed, image reviewed Assessment and Plan (1) Calculus of ureter Status: Acute Code(s): N20.1 - CALCULUS OF URETER SNOMED Code(s): 53166333 Plan: Cystoscopy, right ureteroscopy with Holmium laser lithotripsy and possible stone basketing, right ureteral stent insertion. The procedure then reviewed in detail with the patient. He is aware of potential risks, which include anesthesia, bleeding, infection, inability to remove the calculus, and ureteral injury.
[~2023-03-26] MED LIST: DEXAMETHASONE SOD PHOSPHATE 4 MG/ML 1 ML VIAL IV ONE; HYDROmorphone 0.5 MG/0.5 ML SYRINGE IVP PRN; LACTATED RINGERS 1,000 ML IV SCH; LIDOCAINE 1% (10MG/ML) FOR IV START INTRADERMA PRN; MIDAZOLAM 2 MG/2 ML VIAL IV PRN; ONDANSETRON 4 MG/2 ML VIAL IVP ONE
--- NOTE | 2023-03-26 07:03 | XR ---
EXAMINATION TYPE: XR KUB DATE OF EXAM: 03/26/2023 COMPARISON: 03/17/2023 INDICATION: Right ureteral stone TECHNIQUE: Single view abdomen supine view FINDINGS: There is a normal bowel gas pattern. Psoas margins are normal. A 0.8 cm calcification overlies the right transverse process of L3 can be compatible with a ureteral stone. It is similar to the comparison study. Degenerative changes are through the lumbar spine IMPRESSION: 1. Right ureteral stone
== END ==
LOC: OR 05:58
PROVIDERS: ATTEND Urology
DX: N20.1 Calculus of ureter (principal); E78.5 Hyperlipidemia, unspecified
CPT/HCPCS: 74018

== ENCOUNTER 2023-04-09 08:11 | Day surgery (SDC) | payer MEDICARE, OTHER ==
[2023-03-27 15:29] VITALS: BMI 29.9
--- NOTE | 2023-04-09 08:34 | XR ---
EXAMINATION TYPE: XR KUB DATE OF EXAM: 04/09/2023 8:25 AM CLINICAL INDICATION:Male, 77 years old with history of N20.1 right ureteral calculus; [facility] COMPARISON: 03/26/2023 TECHNIQUE: One radiographic view of the abdomen was obtained. FINDINGS: The bowel gas pattern is nonspecific without dilated loops of small or large bowel. There i s no evidence for organomegaly or pneumoperitoneum. The osseous structures are intact. Fecal materi al and gas are demonstrated throughout the colon and rectum. Right ureteropelvic junction calculus m easuring 9 mm. No Left renal calculi. IMPRESSION: Similar position of right renal pelvis/proximal ureter 9 mm calculus. Nonspecific bowel gas pattern without radiographic evidence for acute process.
[2023-04-09] MEDS ORDERED: MIDAZOLAM 2 MG/2 ML VIAL IV PRN (08:47)
[2023-04-09] MEDS ORDERED: DEXAMETHASONE SOD PHOSPHATE 4 MG/ML 1 ML VIAL IV ONE (08:47)
[2023-04-09] MEDS ORDERED: ONDANSETRON 4 MG/2 ML VIAL IVP ONE (08:47)
[2023-04-09] MEDS ORDERED: LACTATED RINGERS 1,000 ML IV SCH (08:47)
[2023-04-09] MEDS ORDERED: HYDROmorphone 0.5 MG/0.5 ML SYRINGE IVP PRN (08:47)
[2023-04-09 09:20] LABS: Glucose,Whole Blood 94 mg/dL (70-110)
[2023-04-09 09:37] VITALS: TEMP 97.1
[2023-04-09] MEDS ORDERED: LIDOCAINE 1% INJ 10MG/ML (20 ML MDV) ONE (10:07)
[2023-04-09] MEDS ORDERED: PHENYLEPHRINE-0.9% NACL SYG 1,000 MCG/10 ML SYRINGE ONE (10:07)
[2023-04-09] MEDS ORDERED: NEOSTIGMINE 1 MG/ML 10 ML VIAL ONE (10:07)
[2023-04-09] MEDS ORDERED: ePHEDrine 50 MG/ML 1 ML VIAL ONE (10:07)
[2023-04-09] MEDS ORDERED: SUCCINYLCHOLINE CHLORIDE 200 MG/10 ML VIAL IV ONE (10:07)
[2023-04-09] MEDS ORDERED: GLYCOPYRROLATE 0.2 MG/ML 2 ML VIAL ONE (10:07)
[2023-04-09] MEDS ORDERED: fentaNYL (PF) 50 MCG/ML 2 ML AMP ONE (10:07)
[2023-04-09] MEDS ORDERED: PROPOFOL 10 MG/ML 20 ML VIAL IV ONE (10:07)
[2023-04-09] MEDS ORDERED: ROCURONIUM 10 MG/ML (5 ML VIAL) IV ONE (10:07)
[2023-04-09] MEDS ORDERED: MIDAZOLAM 2 MG/2 ML VIAL ONE (10:07)
--- NOTE | 2023-04-09 11:29 | P.OP ---
Date of Procedure: 04/09/23 Preoperative Diagnosis: Right ureteral calculus Postoperative Diagnosis: Same Procedure(s) Performed: Cystoscopy, right ureteroscopy with Holmium laser lithotripsy and stone basketing, right ureteral stent insertion Anesthesia: JOHN Surgeon: Shlomo Jain Estimated Blood Loss (ml): 10 IV fluids (ml): 500 Pathology: none sent Condition: stable Disposition: PACU Indications for Procedure: The patient is a 77-year-old male who underwent cystolithotripsy in 2019. He experienced gross hematuria in August 2022. He reports low back pain. CT scan has shown a 1 cm right proximal ureteral calculus. He was offered the options of medical expulsion therapy, extracorporal shockwave lithotripsy (ESWL), and ureteroscopy with laser lithotripsy. He has chosen to undergo the latter. Operative Findings: Right proximal ureteral calculus, fragmented and removed completely. Description of Procedure: The patient was taken to the operating room and placed in the dorsolithotomy position, with legs supported in Jonathan stirrups. The external genitalia was prepped and draped sterilely. The 30 lens was used to introduce the 21-[place] Gomez cystoscopic sheath through the urethra and into the bladder under direct vision. The prostatic urethra showed evidence of moderate lateral lobe enlargement with a high median bar. The bladder was examined in its entirety. Both ureteral orifices were normal anatomic location and configuration, and clear urine effluxed from both. No tumors or foreign bodies were seen. A 0.038 inch Glidewire was passed through the cystoscope. The right ureteral orifice was cannulated, and the Glidewire was advanced up to the renal pelvis. The cystoscope was removed, and an 11/13-[place] ureteral access catheter was passed over the wire, up to the proximal ureter. The Gomez Banchara flexible ureteroscope was then passed through the ureteral access catheter sheath, up to the stone. The 272 micron Holmium laser probe was passed through the ureteroscope, and lithotripsy was performed. The calculus was very dense, likely composed of calcium oxalate monohydrate. After fragmenting the calculus, calculus fragments were removed using a 1.9-[place] nitinol basket. Pullout ureteroscopy showed no residual fragments within the ureter, and no evidence of ureteral trauma. The cystoscope was replaced into the bladder. The Glidewire was advanced up to the right renal pelvis, and a 28 cm, 4.8-[place] double-J ureteral stent was placed over the wire. Proper stent positioning was verified fluoroscopically and endoscopically. The bladder was emptied and the cystoscope removed. The patient tolerated the procedure well and was taken to the recovery room in stable condition. ELIN ELIANA Report: Procedure Acuity: Elective Stone Size and Location: 1 cm, right proximal ureter Ureteral Dilation: No Ureteral Access Sheath Used: Yes Stone Sent for Analysis: Yes All Stones/Fragments Were Removed with a Basket: Yes Complications: No Preoperative Antibiotics Given: Yes Stent Placed: Yes If Stent Placed, Was String Left Attached: No If Stent Placed, When is it to be Removed: 1 week Discharge Medications: Tamsulosin, Toradol
--- NOTE | 2023-04-09 11:38 | FL ---
EXAMINATION TYPE: FL guidance operating room Intraoperative/procedural fluoroscopic services were pro vided. Total fluoroscopy time is 28 seconds with a total of 4 submitted images to PACS. Please see th e operative/procedural note for further details. DAP: [id number] Gycm2
[2023-04-09 12:35] VITALS: RESP 18
[2023-04-09 13:01] VITALS: BP 149/77; PULSE 45
== END 2023-04-09 13:24 | disposition home or self-care (01) ==
LOC: OR 08:11
PROVIDERS: ATTEND Urology
DX: N20.1 Calculus of ureter (principal); E78.5 Hyperlipidemia, unspecified; Z79.899 Other long term (current) drug therapy; Z87.442 Personal history of urinary calculi
CPT/HCPCS: 52356; 82365; 74018; C2625; C1769; C1894; J2250; J0330; J1100; J2710; J0690; J2405; J2001; J3010; J2704; J2371

== ENCOUNTER 2023-04-12 15:02 | Emergency (ER) | payer MEDICARE, OTHER ==
--- NOTE | 2023-04-12 16:39 | ED ---
Extremity Problem HPI - General Chief complaint: Extremity Problem,Nontraumatic Stated complaint: R foot edema post op Time Seen by Provider: 04/12/23 15:54 Source: patient Mode of arrival: ambulatory Limitations: no limitations - History of Present Illness Initial comments: This patient is a 77-year-old man who presents with concerns about right lower leg/ankle swelling. He states this has been going on for 2 days. It is only affecting the right side. He is not having any associated symptoms. The patient denies pain. He is not having chest pain, palpitations, cough or hemoptysis. The patient does not have history of DVT or PE. He did have procedure on . He had ureteral stent placed. He is having some hematuria related to that and a little bit of discomfort but denies other symptoms. MD Complaint: extremity swelling -: days(s) Location: right, lower extremity History of Same: No Radiation: none Severity scale (1-10): 0 Consistency: constant Improves with: nothing Worsens with: nothing Associated Symptoms: denies other symptoms - Related Data Home Medications Medication Instructions Recorded Confirmed Ascorbic Acid [Vitamin C] 1,000 mg PO QAM 03/24/23 04/09/23 Atorvastatin [Lipitor] 10 mg PO TUFR 03/24/23 04/09/23 Balsalazide Disodium 2,250 mg PO TID 03/24/23 04/09/23 Cholecalciferol (Vitamin D3) 50 mcg PO QAM 03/24/23 04/09/23 [Vitamin D3 (50 Mcg = 2000 Iu) Chew Tab] Cyanocobalamin (Vitamin B-12) 2,500 mcg PO QAM 03/24/23 04/09/23 [Vitamin B-12] Ferrous Sulfate [Feosol] 325 mg PO BID 03/24/23 04/09/23 Multivitamins, Thera [Multivitamin 1 tab PO QAM 03/24/23 04/09/23 (formulary)] Pyridoxine HCl (Vitamin B6) 100 mg PO QAM 03/24/23 04/09/23 [Vitamin B-6] Tamsulosin HCl [Flomax] 0.4 mg PO HS 03/24/23 04/09/23 Zinc Citrate [Zinc] 15 mg PO QAM 03/24/23 04/09/23 predniSONE 10 mg PO TID PRN 03/24/23 04/09/23 Ketorolac [Toradol] 10 mg PO Q6HR PRN 03/27/23 04/09/23 Allergies Allergy/AdvReac Type Severity Reaction Status Date / Time No Known Allergies Allergy Verified 04/12/23 15:26 Review of Systems ROS Statement: Those systems with pertinent positive or pertinent negative responses have been documented in the HPI. ROS Other: All systems not noted in ROS Statement are negative. Constitutional: Denies: fever, chills, weakness Respiratory: Denies: cough, dyspnea, hemoptysis Cardiovascular: Reports: as per HPI, edema. Denies: chest pain, palpitations, syncope Gastrointestinal: Denies: abdominal pain, vomiting, diarrhea Genitourinary: Reports: hematuria. Denies: testicular pain Musculoskeletal: Denies: back pain Past Medical History Past Medical History: Hearing Disorder / Deafness, Hyperlipidemia, Prostate Disorder Additional Past Medical History / Comment(s): enlarged prostate, kidney stone/bladder stone, "heart skips beats"-sees Dr Anaya, colitis History of Any Multi-Drug Resistant Organisms: None Reported Past Surgical History: Orthopedic Surgery Additional Past Surgical History / Comment(s): Right knee surgery x4, "bladder stone" Past Anesthesia/Blood Transfusion Reactions: No Reported Reaction Past Psychological History: No Psychological Hx Reported Smoking Status: Never smoker Past Alcohol Use History: None Reported Past Drug Use History: None Reported - Past Family History Mother Family Medical History: Cancer Sister(s) Family Medical History: Cancer Additional Family Medical History / Comment(s): pancreatic CA General Exam Limitations: no limitations General appearance: alert, in no apparent distress Head exam: Present: atraumatic, normocephalic Eye exam: Present: normal appearance. Absent: scleral icterus, conjunctival injection Respiratory exam: Present: normal lung sounds bilaterally. Absent: respiratory distress, wheezes, rales, rhonchi, stridor Cardiovascular Exam: Present: regular rate, normal rhythm, normal heart sounds. Absent: systolic murmur, diastolic murmur, rubs, gallop GI/Abdominal exam: Present: soft. Absent: tenderness, guarding Extremities exam: Present: full ROM, normal capillary refill, pedal edema (The patient does have very mild edema at the right ankle.), other (No palpable cord, no Homans' sign). Absent: tenderness, joint swelling, calf tenderness Neurological exam: Present: alert Skin exam: Present: warm, dry, intact, normal color. Absent: rash Course Vital Signs 04/12/23 04/12/23 04/12/23 15:23 16:00 16:20 Temperature 98.7 F Pulse Rate 41 L 68 63 Respiratory 17 18 18 Rate Blood Pressure 125/74 134/80 124/78 O2 Sat by Pulse 95 96 95 Oximetry 04/12/23 18:14 Temperature 97.8 F Pulse Rate 68 Respiratory 18 Rate Blood Pressure 142/89 O2 Sat by Pulse 95 Oximetry Medical Decision Making - Medical Decision Making Patient is 77-year-old man presenting with concerns about right ankle edema. The exam does not have overt evidence of DVT. The patient is sent for duplex Doppler which is negative for DVT. Was pt. sent in by a medical professional or institution ([facility], [employer] AND [employer]ING MACHINE OPERATOR, urgent care, hospital, or residential...) When possible be specific @ -[No] Did you speak to anyone other than the patient for history (EMS, parent, family, police, friend...)? What history was obtained from this source @ -[No] Did you review nursing and triage notes (agree or disagree)? Why? @ -[I reviewed and agree with nursing and triage notes] Were old charts reviewed (outside hosp., previous admission, EMS record, old EKG, old radiological studies, urgent care reports/EKG's, residential records)? Report findings @ -[No old charts were reviewed] Differential Diagnosis (chest pain, altered mental status, abdominal pain women, abdominal pain men, vaginal bleeding, weakness, fever, dyspnea, syncope, headache, dizziness, GI bleed, back pain, seizure, CVA, palpatations, mental health, musculoskeletal)? @ -[The differential diagnosis for edema of the ankle includes congestive heart failure, kidney failure, liver failure, anemia and other causes of the reduced osmoles, DVT, musculoskeletal injury, among other conditions EKG interpreted by me (3pts min.). @ -[As above] X-rays interpreted by me (1pt min.). @ -[None done] CT interpreted by me (1pt min.). @ -[None done] U/S interpreted by me (1pt. min.). @ -[None done] What testing was considered but not performed or refused? (CT, X-rays, U/S, labs)? Why? @ -[None] What meds were considered but not given or refused? Why? @ -[None] Did you discuss the management of the patient with other professionals (professionals i.e. , PA, R[employer] AND [employer]ING MACHINE OPERATOR, lab, RT, psych nurse, social sciences instructor, adult high school instructor, teacher, certified juvenile probation officer, disease case manager rn)? Give summary @ -[No] Was smoking cessation discussed for >3mins.? @ -[No] Was critical care preformed (if so, how long)? @ -[No] Were there social determinants of health that impacted care today? How? (Homelessness, low income, unemployed, alcoholism, drug addiction, trans portation, low edu. Level, literacy, decrease access to med. care, skilled nursing, rehab)? @ -[No] Was there de-escalation of care discussed even if they declined (Discuss DNR or withdrawal of care, Hospice)? DNR status @ -[No] What co-morbidities impacted this encounter? (DM, HTN, Smoking, COPD, CAD, Cance r, CVA, ARF, Chemo, Hep., AIDS, mental health diagnosis, sleep apnea, morbid obesity)? @ -[None] Was patient admitted / discharged? Hospital course, mention meds given and route, prescriptions, significant lab abnormalities, going to OR and other pertinent info. @ -[The patient found to be negative for DVT, will have some diuresis and close follow-up to ensure that the edema resolves. Undiagnosed new problem with uncertain prognosis? @ -[No] Drug Therapy requiring intensive monitoring for toxicity (Heparin, Nitro, Insulin, Cardizem)? @ -[No] Were any procedures done? @ -[No] Diagnosis/symptom? @ -[Acute ankle edema Acute, or Chronic, or Acute on Chronic? @ -[Acute Uncomplicated (without systemic symptoms) or Complicated (systemic symptoms)? @ -[Uncomplicated Side effects of treatment? @ -[No] Exacerbation, Progression, or Severe Exacerbation? @ -[No] Poses a threat to life or bodily function? How? (Chest pain, [place], [place], pneumonia, PE, COPD, DKA, ARF, appy, cholecystitis, CVA, Diverticulitis, Homicidal, Suicidal, threat to staff... and all critical care pts) @ -[No] - Lab Data Result diagrams: 04/12/23 16:36 04/12/23 16:36 Lab Results 04/12/23 04/12/23 Range/Units 16:36 16:36 WBC 11.2 H (3.8-10.6) k/uL RBC 4.91 (4.30-5.90) m/uL Hgb 13.7 (13.0-17.5) gm/dL Hct 41.2 (39.0-53.0) % MCV 83.8 (80.0-100.0) fL MCH 27.8 (25.0-35.0) pg MCHC 33.2 (31.0-37.0) g/dL RDW 14.1 (11.5-15.5) % Plt Count 147 L (150-450) k/uL MPV 9.0 Neutrophils % 68 % Lymphocytes % 17 % Monocytes % 7 % Eosinophils % 5 % Basophils % 1 % Neutrophils # 7.7 (1.3-7.7) k/uL Lymphocytes # 2.0 (1.0-4.8) k/uL Monocytes # 0.8 (0-1.0) k/uL Eosinophils # 0.5 (0-0.7) k/uL Basophils # 0.1 (0-0.2) k/uL Sodium 140 (137-145) mmol/L Potassium 4.2 (3.5-5.1) mmol/L Chloride 107 (98-107) mmol/L Carbon Dioxide 27 (22-30) mmol/L Anion Gap 6 mmol/L BUN 22 H (9-20) mg/dL Creatinine 1.26 H (0.66-1.25) mg/dL Est GFR (CKD-EPI)AfAm 64 (>60 ml/min/1.73 sqM) Est GFR (CKD-EPI)NonAf 55 (>60 ml/min/1.73 sqM) Glucose 106 H (74-99) mg/dL Calcium 9.1 (8.4-10.2) mg/dL Total Bilirubin 0.5 (0.2-1.3) mg/dL AST 33 (17-59) U/L ALT 21 (4-49) U/L Alkaline Phosphatase 104 (38-126) U/L Total Protein 7.1 (6.3-8.2) g/dL Albumin 4.2 (3.5-5.0) g/dL Disposition Clinical Impression: Edema of right ankle Disposition: HOME SELF-CARE Condition: Good Instructions (If sedation given, give patient instructions): Leg Edema (ED) Is patient prescribed a controlled substance at d/c from ED?: No Referrals: Corey Woods MD [Primary Care Provider] - 1-2 days
[2023-04-12 16:47] VITALS: RESP 18
[2023-04-12 17:07] LABS: Basophils # (A) 0.1 k/uL (0-0.2); Basophils % (A) 1 %; Eosinophils # (A) 0.5 k/uL (0-0.7); Eosinophils % (A) 5 %; HCT 41.2 % (39.0-53.0); HGB 13.7 gm/dL (13.0-17.5); Lymphocytes % (A) 17 %; MCH 27.8 pg (25.0-35.0); MCHC 33.2 g/dL (31.0-37.0); MCV 83.8 fL (80.0-100.0); Monocytes # (A) 0.8 k/uL (0-1.0); Monocytes % (A) 7 %; Neutrophils # (A) 7.7 k/uL (1.3-7.7); Neutrophils % (A) 68 %; Platelet Count 147 k/uL (150-450); RBC 4.91 m/uL (4.30-5.90); RDW 14.1 % (11.5-15.5); WBC 11.2 k/uL (3.8-10.6)
[2023-04-12 17:11] LABS: ALT 21 U/L (4-49); AST 33 U/L (17-59); African American GFR (CKD) 64 (>60 ml/min/1.73 sqM); Albumin 4.2 g/dL (3.5-5.0); Alkaline Phosphatase 104 U/L (38-126); Anion Gap 6 mmol/L; Blood Urea Nitrogen 22 mg/dL (9-20); Calcium 9.1 mg/dL (8.4-10.2); Carbon Dioxide 27 mmol/L (22-30); Chloride 107 mmol/L (98-107); Glucose 106 mg/dL (74-99); Non-African American GFR(CKD) 55 (>60 ml/min/1.73 sqM); Potassium 4.2 mmol/L (3.5-5.1); Sodium 140 mmol/L (137-145); Total Bilirubin 0.5 mg/dL (0.2-1.3); Total Protein 7.1 g/dL (6.3-8.2)
--- NOTE | 2023-04-12 17:16 | US ---
EXAMINATION TYPE: US venous doppler duplex LE RT DATE OF EXAM: 04/12/2023 4:36 PM COMPARISON: NONE CLINICAL INDICATION: Male, 77 years old with history of leg swelling; Right leg edema SIDE PERFORMED: right TECHNIQUE: The lower extremity deep venous system is examined utilizing real time linear array sonog augusto with graded compression, doppler sonography and color-flow sonography. VESSELS IMAGED: Common Femoral Vein Deep Femoral Vein Greater Saphenous Vein * Femoral Vein Popliteal Vein Small Saphenous Vein * Proximal Calf Veins (* superficial vessels) Grayscale, color doppler, spectral doppler imaging performed of the deep veins of the lower extremiti es. There is normal flow, compressibility, vascular waveforms. Right Leg: No evidence of DVT IMPRESSION: No evidence of DVT.
[2023-04-12 18:26] VITALS: BP 142/89; PULSE 68; TEMP 97.8
== END 2023-04-12 18:15 | disposition home or self-care (01) ==
LOC: EC 15:02
DX: R60.0 Localized edema (principal); E78.5 Hyperlipidemia, unspecified; Z79.899 Other long term (current) drug therapy
CPT/HCPCS: 36415; 80053; 85025; 99284

== ENCOUNTER → 2023-06-04 | Outpatient (CLI) | payer MEDICARE, OTHER ==
--- NOTE | 2023-06-04 10:10 | US ---
EXAMINATION TYPE: US kidneys/renal and bladder DATE OF EXAM: 06/04/2023 COMPARISON: 03/10/2023 CLINICAL INDICATION: Male, 77 years old with history of N20.1 CALCULUS OF URETER; Right calculus. Pat ient had lithotripsy. EXAM MEASUREMENTS: Right Kidney: 11.6 x 6.2 x 6.3 cm Left Kidney: 10.9 x 5.8 x 5.4 cm Right Kidney: Anechoic area upper pole: 4.5 x 4.8 x 5.4 cm. Left Kidney: No hydronephrosis or masses seen Bladder: Appears anechoic. Bilateral Jets seen: Yes IMPRESSION: 1. No evidence for obstructive uropathy. 2. No evidence for calculus. 3. Simple appearing right renal cyst.
== END | disposition home or self-care (01) ==
LOC: RADUSWWP 08:52
PROVIDERS: ATTEND Urology
DX: N20.1 Calculus of ureter (principal); N28.1 Cyst of kidney, acquired
CPT/HCPCS: 76770

== ENCOUNTER 2023-07-17 08:08 | Day surgery (SDC) | payer MEDICARE, OTHER ==
[2023-06-30 18:36] VITALS: BMI 31.1
[2023-07-17] MEDS: SODIUM CHLORIDE 0.9% 500 ML 500 ML IV ONE (08:28)
[2023-07-17] MEDS ORDERED: fentaNYL (PF) 50 MCG/ML 2 ML AMP ONE (09:01)
[2023-07-17] MEDS: BENZOCAINE SPRAY 1 CAN TOPICAL ONE (09:12)
[2023-07-17] MEDS: MIDAZOLAM 2 MG/2 ML VIAL IVP ONE (09:23)
[2023-07-17] MEDS: fentaNYL (PF) 50 MCG/ML 2 ML AMP IVP ONE (09:24)
--- NOTE | 2023-07-17 09:40 | P.PCN ---
Date of Procedure: 07/17/23 Operative Findings: TRANSESOPHAGEAL ECHOCARDIOGRAM LADLE REPAIRER: KARINE HUGHES MD, RPVI INDICATION: ASD SEDATION: Conscious sedation COMPLICATION: None LEVEL OF SEDATION Moderate with sedation length of 14 minutes PROCEDURE DESCRIPTION: After obtaining an informed consent, the patient was brought to transesophageal echocardiogram room. Pulse oximetry and heart monitors were attached to the patient. The patient throat was sprayed using lidocaine. The patient was turned into left lateral position. After that a bite guard was placed. After an appropriate conscious sedation was initiated, the transesophageal echocardiogram was advanced through a bite guard into the mid esophagus. A 2-D echocardiogram images, color Doppler images, continuous wave images, pulse-wave images, of various cardiac structure were performed. After that the transesophageal echocardiogram probe was advanced into the stomach and fixed to obtain transgastric view was. The probe was brought into the mid esophagus. Inter-atrial septum was interrogated using 2D images, color Doppler images, and then contrast study. After that transesophageal echocardiogram was withdrawn out and upon withdrawing the descending thoracic aorta all the way up to the arch was evaluated. CONCLUSION: 1. Extremely aneurysmal interatrial septum with evidence of [id number] shunt and possibly [id number] shunt 2. Mildly dilated right ventricle 3. Normal LV and RV systolic function 4. Trileaflet aortic valve with mild aortic insufficiency 5. Normal mitral valve leaflets with mild MR 6. No evidence of pericardial effusion
[2023-07-17 10:26] VITALS: RESP 16
[2023-07-17 11:08] VITALS: BP 108/77; PULSE 64
== END 2023-07-17 10:33 | disposition home or self-care (01) ==
LOC: CATHCVL 08:08
PROVIDERS: ATTEND Internal Medicine Interventional Cardiology
DX: I08.1 Rheumatic disorders of both mitral and tricuspid valves (principal); I27.20 Pulmonary hypertension, unspecified; E78.5 Hyperlipidemia, unspecified; I49.1 Atrial premature depolarization; I42.8 Other cardiomyopathies; Z88.8 Allergy status to other drugs, medicaments and biological substances; Z79.899 Other long term (current) drug therapy
CPT/HCPCS: 93312; 93320; 93325; 99152; J2250; J3010

== ENCOUNTER → 2023-08-15 | Outpatient (CLI) | payer MEDICARE, OTHER | END | disposition home or self-care (01) | LOC: LABWHC1 07:46 | PROVIDERS: ATTEND Urology | DX: R97.20 Elevated prostate specific antigen [PSA] (principal) | CPT/HCPCS: 36415; 84153 ==

== ENCOUNTER → 2023-11-13 | Outpatient (CLI) | payer MEDICARE, OTHER ==
[2023-11-13 16:10] LABS: % Iron Saturation 27.96 (15.00-50.00); ALT 35 U/L (10-49); AST 21 U/L (14-35); Albumin 4.4 g/dL (3.8-4.9); Alkaline Phosphatase 120 U/L (41-126); BUN/Creat Ratio 16.85 Ratio (12.00-20.00); Blood Urea Nitrogen 21.9 mg/dL (9.0-27.0); C Reactive Protein <0.30 mg/dL (0.00-0.80); Calcium 9.1 mg/dL (8.7-10.3); Carbon Dioxide 22.6 mmol/L (21.6-31.8); Chloride 106 mmol/L (96-109); Chol/HDL Ratio 3.46 Ratio; Creatine Kinase 246 U/L (35-257); Globulin 2.2 g/dL (1.6-3.3); Glucose 95 mg/dL (70-110); Iron 78 UG/DL (65-175); LDL Cholesterol,Calculated 107.5 mg/dL (0.0-131.0); Phosphorus 3.4 mg/dL (2.4-5.1); Potassium 4.3 mmol/L (3.5-5.5); Sodium 141 mmol/L (135-145); Total Bilirubin 0.5 mg/dL (0.3-1.2); Total Iron Binding Capacity 279 UG/DL (228-460); Total Protein 6.6 g/dL (6.2-8.2); VLDL Calculation 15.46 mg/dL (5.00-40.00)
[2023-11-13 16:20] LABS: Basophils # (A) 0.06 X 10*3/uL (0.00-0.10); Basophils % (A) 0.6 %; Eosinophils # (A) 0.57 X 10*3/uL (0.04-0.35); Eosinophils % (A) 5.9 %; HCT 42.9 % (39.6-50.0); HGB 13.8 g/dL (13.0-17.0); Lymphocytes # (A) 2.08 X 10*3/uL (0.90-5.00); Lymphocytes % (A) 21.5 %; MCH 26.1 pg (27.0-32.0); MCHC 32.2 g/dL (32.0-37.0); MCV 81.3 FL (80.0-97.0); Mean Platelet Volume 11.4 FL (9.5-12.2); Monocytes # (A) 0.96 X 10*3/uL (0.20-1.00); Monocytes % (A) 9.9 %; NRBC Per 100 WBC 0 X 10*3/uL (0.00-0.01); Neutrophils # (A) 5.95 X 10*3/uL (1.80-7.70); Neutrophils % (A) 61.4 %; Platelet Count 193 X 10*3/uL (140-440); RBC 5.28 X 10*6/uL (4.40-5.60); RDW 14.7 % (11.5-14.5); WBC 9.69 X 10*3/uL (4.50-10.00)
[2023-11-13 16:48] LABS: Erythrocyte Sedimentation Rate 17 mm/Hr (0-20)
[2023-11-13 21:40] LABS: Microalbumin Creatinine Ratio <6 mg/g Cr (0-30)
== END | disposition home or self-care (01) ==
LOC: LABWHC1 06:59
PROVIDERS: ATTEND Internal Medicine
DX: Z00.00 Encounter for general adult medical examination without abnormal findings
CPT/HCPCS: 36415; 80053; 80061; 82043; 82306; 82550; 82570; 82728; 83540; 83550; 83735; 84100; 84443; 85025; 85652; 86140

== ENCOUNTER 2023-11-25 08:47 | Day surgery (SDC) | payer MEDICARE, OTHER ==
[2023-11-20 10:47] VITALS: BMI 29.9
[~2023-11-25 08:47] MED LIST changes: +ALPRAZolam 0.25 MG TAB PO PRN; +ALPRAZolam 0.5 MG TAB PO PRN; -DEXAMETHASONE SOD PHOSPHATE 4 MG/ML 1 ML VIAL IV ONE; +HEPARIN SODIUM,PORCINE (1 ML) 2,500 UNIT in SODIUM CHLORIDE 0.9% 250 ML IRRIGATION PRN; +HEPARIN SODIUM,PORCINE 10,000 UNIT in SODIUM CHLORIDE 0.9% 1,000 ML IRRIGATION PRN; -HYDROmorphone 0.5 MG/0.5 ML SYRINGE IVP PRN; -LACTATED RINGERS 1,000 ML IV SCH; -LIDOCAINE 1% (10MG/ML) FOR IV START INTRADERMA PRN; -MIDAZOLAM 2 MG/2 ML VIAL IV PRN; +NITROGLYCERIN SL TABS 0.4 MG TAB SUBLINGUAL PRN; -ONDANSETRON 4 MG/2 ML VIAL IVP ONE
[2023-11-25] MEDS: SODIUM CHLORIDE 0.9% 1,000 ML IV ONE (09:58)
[2023-11-25] MEDS: ASPIRIN 325 MG TAB PO ONE ×2 (10:00→15:34)
[2023-11-25] MEDS ORDERED: LIDOCAINE 1% INJ 10MG/ML (20 ML MDV) ONE (12:22)
[2023-11-25] MEDS: MIDAZOLAM 2 MG/2 ML VIAL IVP ONE (12:27)
[2023-11-25] MEDS ORDERED: HEPARIN SODIUM 1,000 UN/ML (10ML VL) ONE (12:49)
[2023-11-25] MEDS: HEPARIN SODIUM 1,000 UN/ML (10ML VL) IVP ONE (12:53)
[2023-11-25] MEDS ORDERED: predniSONE 10 MG TAB PO PRN (13:46)
[2023-11-25] MEDS ORDERED: CLOPIDOGREL 75 MG TAB ONE (14:51)
--- NOTE | 2023-11-25 14:51 | P.PCN ---
Date of Procedure: 11/25/23 Operative Findings: PERCUTANEOUS CLOSURE OF FENESTRATED INTERATRIAL SEPTUM PERFORMING PHYSICIAN: Rufino Anaya MD, [facility] PROCEDURE PERFORMED: 1. Successful percutaneous closure of PFO using 30 Amplatzer Occluder with an excellent results and without any residual shunt. 2. Intracardiac echocardiogram imaging. 3. Right atrial angiogram. INDICATION: Fenestrated interatrial septum with bidirectional shunt APPROACH: Right common femoral vein 2 COMPLICATION: None. LEVEL OF SEDATION: Moderate with sedation length of 45 minutes. PROCEDURE DESCRIPTION: After obtaining informed consent, the patient was brought to the cardiac specialist employee labor relations. The right common femoral vein was cannulated x2 using micropuncture technique under ultrasound guidance, the micropuncture wire passed easily, then I placed two 8-Palauan sheath in the right groin. Subsequently I cannulated the left common femoral vein with the same technique and I placed an 8-Palauan sheath there as well. At that point, anticoagulation was initiated using heparin and the patient was given a bolus of 5,000 units of heparin IV with continuous ACT monitoring throughout the procedure. After that, the intracardiac echocardiogram probe was advanced through one of the venous sheath all the way to the right atrium where we did interrogate the interatrial septum and identified the patent foramen ovale which was measured about 35 mm. Subsequently, I did cross the defect using 0.035 J-wire with the backup support of multipurpose catheter. The wire was advanced all the way to the left upper pulmonary vein and subsequently the catheter was advanced over the wire to the left upper pulmonary vein. The 0.035 J-wire was pulled out and then I advanced a salina wire. Subsequently, the multipurpose catheter was withdrawn out and the wire was left in the left upper pulmonary vein. After that, I did prep the Amplatzer PFO occluder under saline. The device was loaded into the oyster unloader, which was attached to the sheath. Subsequently, I did exchange my 8-Palauan sheath into the Shuttle sheath over a 0.035 salina wire. The sheath was advanced all the way under fluoroscopy guidance to the left atrium. Subsequently, the dilator of the sheath was withdrawn out along with the wire. After that, I did load the Amplatzer occluder under continuous saline flush to the sheath. The device was advanced all the way through the sheath were I did where I did deploy initially the left atrial occluder and then I pulled back the sheath and the left atrial occluder all the way to the interatrial septum and then I deployed the right atrial occluder after that. Before I released the device, I did interrogate the septum using ice images on multiple views. After I realized that the device was stable enough and in good position the device was released. Interrogation using ice was also performed after the device was released. By the end I did right atrial angiogram. The procedure was completed without any complication. POSTPROCEDURE MANAGEMENT: 1. Dual anti-platelet therapy. 2. An echo in 24 hours, in 1 week, in 4 weeks, as well as in 6 months.
[2023-11-25] MEDS: CLOPIDOGREL 75 MG TAB PO ONE (15:03)
[2023-11-25] MEDS: SODIUM CHLORIDE 0.9% 1,000 ML in EMPTY BAG 1 BAG IV SCH (15:34)
[2023-11-25] MEDS: SODIUM CHLORIDE 0.9% 1,000 ML IV SCH ×2 (15:35→17:55)
[2023-11-25] MEDS: CLOPIDOGREL 75 MG TAB PO STA (15:39)
--- NOTE | 2023-11-25 17:45 | P.CONS ---
History of Present Illness - Reason for Consult Consult date: 11/25/23 - History of Present Illness Dictation of medical consult Patient seen and evaluated Status post percutaneous closure of fenestrated intra-atrial septum. Patient had elective closure treatment per Dr. Bradley. Patient has successful percutaneous closure of PFO he has as well intracardiac echocardiogram and he had right atrial angiogram The indication fenestrated intra-atrial septum with bidirectional shunt. Approach through right common femoral vein. With his recommendation dual antiplatelet therapy Repeated echocardiogram and 24-hour, 1 week, 4 weeks, 6 months. On evaluation: Patient is conscious alert oriented x 3 no chest pain no abdominal pain. Vital sign heart rate 60 bpm respiratory rate 18/min, blood pressure 136/74 with a mean 94. His oxygen saturation 95% on room air. Past medical history 1. Inflammatory bowel disease with the routine colonoscopy every [address] Whyte with the ulcerative colitis 2. Anemia secondary to blood loss associated with the illness. 3. Hyperlipidemia 4. Chronic steroid use for the underlying colitis flareup. 5. Benign prostatic hypertrophy. On exam: Conscious alert oriented postoperative vital signs stable Head was normocephalic atraumatic pupil was equal reactive Neck was supple no JVD no thyromegaly no lymphadenopathy trachea midline Chest clear to auscultation percussion Heart regular sinus rhythm and no chest pain Abdomen soft positive bowel sound Extremities no edema. Neurologically stable no lateralizing sign and no neurological deficit Assessment: 1. Stable postoperative with the ceiling PFO as well as fenestrated intra atrial septum. Recommendation: Patient probably will be discharged tomorrow and probably the echo will be done by Dr. Bradley as outpatient. And will resume his home medication tomorrow Past Medical History Past Medical History: Hearing Disorder / Deafness, Prostate Disorder Additional Past Medical History / Comment(s): See Dr Anaya H&P. Enlarged prostate , hx kidney stone/bladder stone, "heart skips beats"-sees Dr Anaya, colitis, bilateral hearing aids. History of Any Multi-Drug Resistant Organisms: None Reported Past Surgical History: Orthopedic Surgery Additional Past Surgical History / Comment(s): Right knee surgery X 4, "bladder stone" surgery, [facility], colonoscopies, PFO closure 11/25/2023 Past Anesthesia/Blood Transfusion Reactions: No Reported Reaction Past Psychological History: No Psychological Hx Reported Smoking Status: Never smoker Past Alcohol Use History: None Reported Past Drug Use History: None Reported - Past Family History Mother Family Medical History: Cancer Sister(s) Family Medical History: Cancer Additional Family Medical History / Comment(s): Pancreatic cancer. Medications and Allergies Home Medications Medication Instructions Recorded Confirmed Type Ascorbic Acid [Vitamin C] 1,000 mg PO QAM 03/24/23 11/25/23 History Atorvastatin [Lipitor] 10 mg PO TUFR 03/24/23 11/25/23 History Cholecalciferol (Vitamin D3) 50 mcg PO QAM 03/24/23 11/25/23 History [Vitamin D3 (50 Mcg = 2000 Iu) Chew Tab] Cyanocobalamin (Vitamin B-12) 2,500 mcg PO QAM 03/24/23 11/25/23 History [Vitamin B-12] Ferrous Sulfate [Iron (65 MG 325 mg PO BID 03/24/23 11/25/23 History Elemental)] Multivitamins, Thera [Multivitamin 1 tab PO QAM 03/24/23 11/25/23 History (formulary)] Pyridoxine HCl (Vitamin B6) 100 mg PO QAM 03/24/23 11/25/23 History [Vitamin B-6] Tamsulosin HCl [Flomax] 0.4 mg PO HS 03/24/23 11/25/23 History Zinc Citrate [Zinc] 15 mg PO QAM 03/24/23 11/25/23 History predniSONE 10 mg PO TID PRN 03/24/23 11/25/23 History Mesalamine 1.2 gm PO QID 11/20/23 11/25/23 History Allergies Allergy/AdvReac Type Severity Reaction Status Date / Time No Known Allergies Allergy Verified 11/25/23 09:47 Physical Exam Vitals: Vital Signs Temp Pulse Resp BP Pulse Ox 11/25/23 16:03 60 18 136/74 95 11/25/23 15:32 60 18 136/79 95 11/25/23 14:40 64 16 120/86 98 11/25/23 14:25 63 16 120/89 97 11/25/23 14:09 61 16 142/104 96 11/25/23 13:55 63 16 136/79 97 11/25/23 13:40 58 L 16 145/90 98 11/25/23 09:57 97.1 F L 60 18 127/77 98 Intake and Output 0911/25/23 11/25/23 06:59 14:59 22:59 Intake Total 450 Balance 450 Intake: IV 450 Other: # Voids 250 Weight 99.7 kg 99.7 kg
[2023-11-25] MEDS: BALSALAZIDE DISODIUM 750 MG CAPSULE PO SCH (18:05)
[2023-11-25] MEDS: TAMSULOSIN 0.4 MG CAP.ER.24H PO SCH (20:18)
[2023-11-25] MEDS: FERROUS SULFATE 325 MG TAB PO SCH (20:18)
[2023-11-26 04:02] VITALS: TEMP 97.9
[2023-11-26] MEDS: CHOLECALCIFEROL 25 MCG (1000 IU) TABLET PO SCH (08:33)
[2023-11-26] MEDS: MULTIVITAMINS, THERA 1 EACH TAB PO SCH (08:33)
[2023-11-26] MEDS: ASPIRIN 325 MG TAB PO SCH (08:33)
[2023-11-26] MEDS: CYANOCOBALAMIN 500 MCG TAB PO SCH (08:33)
[2023-11-26] MEDS: ZINC SULFATE 220 MG CAP PO SCH (08:33)
[2023-11-26] MEDS: CLOPIDOGREL 75 MG TAB PO SCH (08:33)
[2023-11-26] MEDS: PYRIDOXINE 50 MG TAB PO SCH (08:33)
[2023-11-26 08:38] LABS: Basophils # (A) 0.1 k/uL (0-0.2); Basophils % (A) 1 %; Eosinophils # (A) 0.3 k/uL (0-0.7); Eosinophils % (A) 2 %; HCT 47.3 % (39.0-53.0); HGB 14.9 gm/dL (13.0-17.5); Hypochromasia Slight; Lymphocytes # (A) 1.6 k/uL (1.0-4.8); Lymphocytes % (A) 14 %; MCH 26.6 pg (25.0-35.0); MCHC 31.6 g/dL (31.0-37.0); MCV 84.4 fL (80.0-100.0); Monocytes # (A) 0.7 k/uL (0-1.0); Monocytes % (A) 6 %; Neutrophils # (A) 8.5 k/uL (1.3-7.7); Neutrophils % (A) 75 %; Platelet Count 166 k/uL (150-450); RBC 5.61 m/uL (4.30-5.90); RDW 13.9 % (11.5-15.5); WBC 11.3 k/uL (3.8-10.6)
[2023-11-26 08:41] VITALS: BP 93/59; PULSE 69; RESP 18
[2023-11-26] MEDS ORDERED: ASPIRIN 325 MG TAB PO SCH (09:00)
[2023-11-26] MEDS ORDERED: CLOPIDOGREL 75 MG TAB PO SCH (09:00)
[2023-11-26 09:01] LABS: African American GFR (CKD) 68 (>60 ml/min/1.73 sqM); Anion Gap 9 mmol/L; Blood Urea Nitrogen 17 mg/dL (9-20); Calcium 9.9 mg/dL (8.4-10.2); Carbon Dioxide 24 mmol/L (22-30); Chloride 105 mmol/L (98-107); Glucose 119 mg/dL (74-99); Non-African American GFR(CKD) 59 (>60 ml/min/1.73 sqM); Potassium 4.3 mmol/L (3.5-5.1); Sodium 138 mmol/L (137-145)
--- NOTE | 2023-11-26 11:38 | XR ---
EXAMINATION TYPE: XR chest 2V DATE OF EXAM: 11/26/2023 COMPARISON: 05/17/2019 HISTORY: 77-year-old male ASD/PFO placement TECHNIQUE: PA and lateral views FINDINGS: Heart normal size. PFO closure device placed in the interval. Tortuous/ectatic thoracic aorta is tatiana lar. Mild interstitial prominence and hyperinflation. No consolidation or pleural effusion. IMPRESSION: Interval placement of PFO closure device. COPD. No acute process seen.
--- NOTE | 2023-11-26 15:10 | P.DS ---
Providers Attending physician: Rufino Anaya Primary care physician: [facility] Course: The patient is a pleasant 77-year-old gentleman who underwent yesterday successful fenestrated interatrial septum closure using 30 mm Amplatzer PFO closure with an excellent results and no complication He was seen and evaluated this morning. The right groin is soft and nontender with no bruises and no hematoma. The patient is going to be discharged home on dual antiplatelet therapy and he will be seen in the office. Plan - Discharge Summary Discharge Rx Participant: No New Discharge Prescriptions: New Clopidogrel [Plavix] 75 mg PO DAILY #90 tab Aspirin EC [Ecotrin Low Dose] 81 mg PO DAILY #90 tab Continue Pyridoxine HCl (Vitamin B6) [Vitamin B-6] 100 mg PO QAM Ascorbic Acid [Vitamin C] 1,000 mg PO QAM Ferrous Sulfate [Iron (65 MG Elemental)] 325 mg PO BID Atorvastatin [Lipitor] 10 mg PO TUFR Tamsulosin HCl [Flomax] 0.4 mg PO HS Cholecalciferol (Vitamin D3) [Vitamin D3 (50 Mcg = 2000 Iu) Chew Tab] 50 mcg PO QAM Mesalamine 1.2 gm PO QID Multivitamins, Thera [Multivitamin (formulary)] 1 tab PO QAM Cyanocobalamin (Vitamin B-12) [Vitamin B-12] 2,500 mcg PO QAM predniSONE 10 mg PO TID PRN PRN Reason: Colitis flare up Zinc Citrate [Zinc] 15 mg PO QAM Discharge Medication List Ascorbic Acid [Vitamin C] 1,000 mg PO QAM 03/24/23 [History] Atorvastatin [Lipitor] 10 mg PO TUFR 03/24/23 [History] Cholecalciferol (Vitamin D3) [Vitamin D3 (50 Mcg = 2000 Iu) Chew Tab] 50 mcg PO QAM 03/24/23 [History] Cyanocobalamin (Vitamin B-12) [Vitamin B-12] 2,500 mcg PO QAM 03/24/23 [History] Ferrous Sulfate [Iron (65 MG Elemental)] 325 mg PO BID 03/24/23 [History] Multivitamins, Thera [Multivitamin (formulary)] 1 tab PO QAM 03/24/23 [History] Pyridoxine HCl (Vitamin B6) [Vitamin B-6] 100 mg PO QAM 03/24/23 [History] Tamsulosin HCl [Flomax] 0.4 mg PO HS 03/24/23 [History] Zinc Citrate [Zinc] 15 mg PO QAM 03/24/23 [History] predniSONE 10 mg PO TID PRN 03/24/23 [History] Mesalamine 1.2 gm PO QID 11/20/23 [History] Aspirin EC [Ecotrin Low Dose] 81 mg PO DAILY #90 tab 11/26/23 [Rx] Clopidogrel [Plavix] 75 mg PO DAILY #90 tab 11/26/23 [Rx] Follow up Appointment(s)/Referral(s): Rufino Anaya MD [STAFF PHYSICIAN] - 12/02/23 3:15 pm (FIRST FOLLOW UP APPOINTMENT IS ON ThursdayNov AT 3:15 PM AT MAIN OFFICE. POST PFO PROCEDURE. ONE MONTH APPOINTMENT IS ON ThuDec AT 3:45 PM MAIN OFFICE 6 MONTH FOLLOW ThursdayMay AT 1:45 AT [facility] OFFICE ONE YEAR APPOINTMENT FOLLOW UP IS ON Nov AT 1:30 PM AT [facility] OFFICE. ) Discharge Disposition: HOME SELF-CARE
--- NOTE | 2023-11-26 17:43 | CA ---
Transthoracic Echo Report Name: Archie Stephen Age: 77 Gender: M : 1945 Exam Date: 11/26/2023 09:33 Exam Location: [facility] Ht (in): 71 Wt (lb): 219 Ordering Physician: Rufino Anaya MD ([id number]) Attending/Referring Phys: Wood Engraver Lauren Koenig RDCS Procedure CPT: Indications: Post ASD/PFO Insertion Cardiac Hx: Technical Quality: Fair Contrast 1: Total Dose (mL): Contrast 2: Total Dose (mL): MEASUREMENTS (Male / Female) Normal Values 2D ECHO LV Diastolic Diameter PLAX 4.6 cm 4.2 - 5.9 / 3.9 - 5.3 cm LV Systolic Diameter PLAX 2.7 cm IVS Diastolic Thickness 1.3 cm 0.6 - 1.0 / 0.6 - 0.9 cm LVPW Diastolic Thickness 1.1 cm 0.6 - 1.0 / 0.6 - 0.9 cm LV Relative Wall Thickness 0.5 RV Internal Dim ED PLAX 2.5 cm LV Diastolic Volume MOD BP 70.3 cm??? 67 - 155 / 56 - 104 cm??? LV Systolic Volume MOD BP 29.3 cm??? 22 - 58 / 19 - 49 cm??? LV Ejection Fraction MOD BP 58.3 % >= 55 % LV Cardiac Index MOD BP 1252.5 cm???/min???m??? LV Diastolic Volume MOD 4C 79.5 cm??? LV Systolic Volume MOD 4C 30.1 cm??? LV Ejection Fraction MOD 4C 62.1 % LV Cardiac Index MOD 4C 1511.5 cm???/min???m??? LV Diastolic Length 4C 7.7 cm LV Systolic Length 4C 6.4 cm LV Diastolic Volume MOD 2C 62.1 cm??? LV Systolic Volume MOD 2C 28.6 cm??? LV Ejection Fraction MOD 2C 54.0 % LV Cardiac Index MOD 2C 1024.1 cm???/min???m??? LV Diastolic Length 2C 7.8 cm LV Systolic Length 2C 6.4 cm LA Volume 41.7 cm??? 18 - 58 / 22 - 52 cm??? LA Volume Index 18.5 cm???/m??? 16 - 28 cm???/m??? M-MODE Aortic Root Diameter MM 4.0 cm LA Systolic Diameter MM 3.9 cm LA Ao Ratio MM 1.0 AV Cusp Separation MM 1.8 cm DOPPLER AI Peak Velocity 292.7 cm/s AI Peak Gradient 34.3 mmHg AI Pressure Half Time 849.3 ms MV Area PHT 2.0 cm??? Mitral E Point Velocity 55.9 cm/s Mitral A Point Velocity 85.1 cm/s Mitral E to A Ratio 0.7 MV Deceleration Time 382.6 ms FINDINGS Left Ventricle Left ventricular ejection fraction is estimated at 60-65%. Mildly increased septal wall thickness. Left ventricular cavity size normal. No obvious regional wall motion abnormalities. Right Ventricle Normal right ventricular size and function. Unable to estimate the right ventricular systolic pressure. Right Atrium Normal right atrial size. Septal occulder well-seated Left Atrium Mild left atrial dilatation. Mitral Valve Structurally normal mitral valve. Mild mitral regurgitation. No mitral stenosis. Aortic Valve Trileaflet aortic valve. Mild aortic regurgitation. No aortic stenosis. Tricuspid Valve Structurally normal tricuspid valve. Trace tricuspid regurgitation. No tricuspid stenosis. Pulmonic Valve Structurally normal pulmonic valve. Trace pulmonic regurgitation. No pulmonic stenosis. Pericardium No pericardial or pleural effusion. Aorta Mild aortic dilatation at the level of the sinuses of valsalva (root). CONCLUSIONS Septal Occluder well-Seated. EF 60-65% Previewed by: Dr. Ryan Hernandez MD (Electronically Signed) Final Date: 26 November 2023 17:43
[2023-11-27] MEDS ORDERED: ATORVASTATIN 10 MG TAB PO SCH (09:00)
== END 2023-11-26 13:05 | disposition home or self-care (01) ==
LOC: CATHCVL 08:47 → 3SCARD 13:18 → CATHCVL 11-26 13:05
PROVIDERS: ATTEND Internal Medicine Interventional Cardiology
DX: Q21.12 Patent foramen ovale (principal); I42.8 Other cardiomyopathies; I47.10 Supraventricular tachycardia, unspecified; I49.1 Atrial premature depolarization; I49.3 Ventricular premature depolarization; I27.20 Pulmonary hypertension, unspecified; I08.3 Combined rheumatic disorders of mitral, aortic and tricuspid valves; I77.819 Aortic ectasia, unspecified site; I11.9 Hypertensive heart disease without heart failure; E78.5 Hyperlipidemia, unspecified; N40.0 Benign prostatic hyperplasia without lower urinary tract symptoms; J44.9 Chronic obstructive pulmonary disease, unspecified; Z87.19 Personal history of other diseases of the digestive system; Z88.8 Allergy status to other drugs, medicaments and biological substances; Z79.899 Other long term (current) drug therapy; Z79.02 Long term (current) use of antithrombotics/antiplatelets; Z79.82 Long term (current) use of aspirin; Z87.442 Personal history of urinary calculi
CPT/HCPCS: 71046; 80048; 85025; 86850; 86900; 86901; 93306; 93580; 93662

== ENCOUNTER → 2023-12-24 | Outpatient (CLI) | payer MEDICARE, OTHER ==
--- NOTE | 2023-12-24 11:16 | XR ---
EXAMINATION TYPE: XR elbow complete LT DATE OF EXAM: 12/24/2023 COMPARISON: NONE HISTORY: 78-year-old male M70.22 arthritis OLECRA. Bursitis L ELBOW TECHNIQUE: 3 views FINDINGS: There is posterior olecranon soft tissue swelling. No elbow joint effusion or acute fractur e, subluxation, dislocation. IMPRESSION: Posterior olecranon soft tissue swelling could represent edema or olecranon bursitis. No underlying a cute osseous abnormality seen. [facility], , 12/24/2023 11:14 AM
[2023-12-24 15:11] LABS: BUN/Creat Ratio 15.09 Ratio (12.00-20.00); Blood Urea Nitrogen 16.6 mg/dL (9.0-27.0); Calcium 8.8 mg/dL (8.7-10.3); Chloride 107 mmol/L (96-109); Glucose 103 mg/dL (70-110); Potassium 4.1 mmol/L (3.5-5.5); Sodium 142 mmol/L (135-145); Uric Acid 6.5 mg/dL (3.7-8.7)
[2023-12-24 15:39] LABS: Appearance,Urine Clear (Clear); Bilirubin,Urine Negative (Negative); Blood,Urine Negative (Negative); Color,Urine Dark Yellow (Yellow); Ketones,Urine Negative (Negative); Nitrite,Urine Negative (Negative); PH, Urine 5.5; Specific Gravity,Urine 1.017 (1.001-1.030); Urobilinogen,Urine 0.2 E.U./DL
== END | disposition home or self-care (01) ==
LOC: LABWHC1 08:50
PROVIDERS: ATTEND Internal Medicine
CPT/HCPCS: 36415; 80048; 81003; 82310; 84550; 84560

== ENCOUNTER → 2024-02-12 | Outpatient (CLI) | payer MEDICARE, OTHER | END | disposition home or self-care (01) | LOC: LABWHC1 06:57 | PROVIDERS: ATTEND Urology | DX: C61 Malignant neoplasm of prostate (principal) | CPT/HCPCS: 36415; 84153 ==